=== PATIENT | male | born 1945 | race Caucasian/White ===

== ENCOUNTER 2016-11-06 07:04 | Emergency (ER) | payer MEDICARE, OTHER ==
--- NOTE | 2016-11-06 07:34 | ED Physician Documentation ---
PD HPI OPHTHO - Stated complaint Stated Complaint: BLURRED VISION - Chief complaint Chief Complaint: Neuro - History obtained from History obtained from: Patient - History of Present Illness Timing - onset: Today Timing - duration: Hours Timing - details: Gradual onset, Waxing and waning Location: Both (he noted movement of his vision when he awoke and was looking up and to the side, it seemed things were moving back and forth as he looked straight, and was happening with either or both eyes. No sense of vertigo per se. No visual change from his baseline poor acuity (20-200) and some peripheral rim visual loss chronically.) Quality / character: No: Itching, Burning Associated symptoms: Other (shifting back and forth of his vision.). No: Redness, Double vision, Decreased vision, Loss of vision, Headache Contributing factors: Other (does have history of Meniere's in the past with vertigo at times.). No: Recent URI Review of Systems Constitutional: denies: Fever, Chills Nose: denies: Rhinorrhea / runny nose, Congestion Throat: denies: Sore throat Respiratory: denies: Cough GI: denies: Nausea, Vomiting, Diarrhea Skin: denies: Rash, Lesions Neurologic: denies: Focal weakness, Numbness PD PAST MEDICAL HISTORY - Past Medical History Past Medical History: Yes Cardiovascular: Hypertension Respiratory: Pneumonia Endocrine/Autoimmune: Type 2 diabetes Musculoskeletal: Fibromyalgia - Past Surgical History Past Surgical History: Yes General: Cholecystectomy Derm: Skin grafts - Present Medications Home Medications: Ambulatory Orders Medication Instructions Recorded Confirmed Aspirin [Children's Aspirin] 81 mg PO DAILY 01/26/13 11/07/16 Atorvastatin Calcium [Lipitor] 10 mg PO HS 01/26/13 11/07/16 Hydroxychloroquine [Plaquenil] 200 mg PO BID 01/26/13 11/07/16 Lisinopril [Prinivil] 5 mg PO DAILY 01/26/13 11/07/16 [place]-3 Fatty Acids/Fish Oil [Fish 1 tab PO DAILY 01/26/13 11/06/16 Oil 1,000 mg Capsule] Omeprazole 20 mg PO BID 01/26/13 11/06/16 Saxagliptin HCl [Onglyza] 5 mg PO DAILY 01/26/13 11/06/16 Metoprolol Tartrate 50 mg PO DAILY 02/04/14 11/06/16 - Allergies Allergies/Adverse Reactions: Allergies Allergy/AdvReac Type Severity Reaction Status Date / Time lidocaine Allergy pass out Verified 11/07/16 01:50 - Social History Does the pt smoke?: No Smoking Status: Former smoker Does the pt drink ETOH?: No Does the pt have substance abuse?: No - Immunizations Immunizations are current?: Yes - POLST Patient has POLST: No POLST Status: Full Code PD ED PE NORMAL - Vitals Vital signs reviewed: Yes - General General: Alert and oriented X 3, Well developed/nourished - HEENT HEENT: PERRL, EOMI (but with some horizontal nystagmus to the left. No vertical nystagmus.) - Neck Neck: Supple, no meningeal sign, No adenopathy - Cardiac Cardiac: RRR, No murmur - Respiratory Respiratory: Clear bilaterally - Derm Derm: Normal color, Warm and dry, No rash - Extremities Extremities: Normal ROM s pain, No edema - Neuro Neuro: Alert and oriented X 3, logistics support 2-12 intact, No motor deficit, No sensory deficit, Normal speech, Other Results - Vitals Vitals: Vital Signs - 24 hr 11/06/16 08:08 Heart Rate 70 Respiratory 20 Rate Blood Pressure 134/76 H O2 Saturation 98 Oxygen O2 Source Room air PD MEDICAL DECISION MAKING - ED course Complexity details: considered differential (His description of the movement of things in his vision seems to correlate with the nystagmus he is having. No new meds or other likely cause, so presume a mild symptoms from his Menieres, though not having overt vertigo. ), d/w patient Departure - Departure Disposition: 01 Home, Self Care Clinical Impression: Visual disturbance, Nystagmus Condition: Stable Record reviewed to determine appropriate education?: Yes Follow-Up: Chung Villalta MD [Primary Care Provider] - Steven Iglesias MD [Provider Admit Priv/Credential] - Comments: I think the image movement you had this morning is from inner ear problem, like your Meniere's acting up. This will cause a back and forth eye movement ( nystagmus) that makes images move like you describe. If you have worse symptoms or develop vertigo, then can use Meclizine every 6 hours if needed. Otherwise stay normally hydrated and usual medications. Follow up PMD or Eye doctor as needed. Discharge Date/Time: 11/06/16 08:08
[2016-11-06 08:09] VITALS: BP 134/76
== END 2016-11-06 08:08 | disposition home or self-care (01) ==
LOC: ED 07:04
DX: H53.9 Unspecified visual disturbance (principal); H55.00 Unspecified nystagmus; I10 Essential (primary) hypertension; E11.9 Type 2 diabetes mellitus without complications; M79.7 Fibromyalgia; Z79.82 Long term (current) use of aspirin; Z87.891 Personal history of nicotine dependence
CPT/HCPCS: 99283

== ENCOUNTER 2016-11-07 01:45 | Emergency (ER) | payer MEDICARE, OTHER ==
[2016-11-07] MEDS ORDERED: MECLIZINE 12.5 MG TABLET PO STA (02:11)
[2016-11-07] MEDS ORDERED: MECLIZINE 12.5 MG TABLET PO ONE (02:12)
== END 2016-11-07 03:30 | disposition home or self-care (01) ==
DX: R42 Dizziness and giddiness (principal); R11.0 Nausea; I10 Essential (primary) hypertension; E11.9 Type 2 diabetes mellitus without complications; Z79.82 Long term (current) use of aspirin; Z87.891 Personal history of nicotine dependence
CPT/HCPCS: 99283; A9270

== ENCOUNTER 2017-05-02 18:40 | Emergency (ER) | payer MEDICARE, OTHER ==
[2017-05-02] MEDS ORDERED: CYCLOBENZAPRINE 10 MG TABLET PO STA (20:14)
[2017-05-02] MEDS ORDERED: KETOROLAC 60 MG/2 ML VIAL IM STA (20:14)
--- NOTE | 2017-05-02 20:15 | ED Physician Documentation ---
PD HPI BACK PAIN - Stated complaint Stated Complaint: SHOULDER BLADE PX - Chief complaint Chief Complaint: Ext Problem - History obtained from History obtained from: Patient, Family - History of Present Illness Timing - onset: Chronic Timing - duration: Weeks Timing - details: Intermittant, Waxing and waning Location: Upper, Right Quality: Pain, Sharp, Aching Associated symptoms: No: Fever, Weakness, Numbness, Incontinent of urine, Hematuria Worsened by: Movement, Palpation Contributing factors: Lifting, Twisting Similar symptoms before: No diagnosis Recently seen: Clinic - Additional information Additional information: Patient is a 71 year old male with a history of multiple surgeries who is presenting to the emergency department for right upper back pain. Patient states that it has been going on for weeks. Patient states that he had an episode earlier in the week and it was in his axilla and he stopped by his primary's office and they did an ekg and it was normal. Patient denies any type of trauma, chest pain, shortness of breath, nausea, vomiting, fevers or chills. He states it is worse when he moves it and better at rest. Review of Systems Constitutional: denies: Fever, Chills Eyes: denies: Decreased vision, Photophobia Ears: denies: Ear pain, Drainage/discharge Nose: denies: Rhinorrhea / runny nose, Congestion Throat: reports: Other (chronic dysphagia) Cardiac: denies: Chest pain / pressure, Palpitations, Calf pain Respiratory: denies: Dyspnea, Cough, Wheezing GI: denies: Nausea, Vomiting, Constipation, Diarrhea : reports: Reviewed and negative Skin: denies: Rash, Lesions Musculoskeletal: reports: Back pain. denies: Neck pain, Extremity pain, Joint pain Neurologic: denies: Generalized weakness, Focal weakness, Numbness, Difficulty speaking, Headache Immunocompromised: denies: Immunocompromised PD PAST MEDICAL HISTORY - Past Medical History Cardiovascular: Hypertension Respiratory: Pneumonia Neuro: None Endocrine/Autoimmune: Type 2 diabetes HEENT: None Psych: None Musculoskeletal: Fibromyalgia - Past Surgical History Past Surgical History: Yes General: Cholecystectomy Derm: Skin grafts - Present Medications Home Medications: Ambulatory Orders Medication Instructions Recorded Confirmed Aspirin [Children's Aspirin] 81 mg PO DAILY 01/26/13 05/02/17 Hydroxychloroquine [Plaquenil] 200 mg PO BID 01/26/13 05/02/17 Lisinopril [Prinivil] 5 mg PO DAILY 01/26/13 05/02/17 [place]-3 Fatty Acids/Fish Oil [Fish 1 tab PO DAILY 01/26/13 05/02/17 Oil 1,000 mg Capsule] Omeprazole 20 mg PO BID 01/26/13 05/02/17 Saxagliptin HCl [Onglyza] 5 mg PO DAILY 01/26/13 05/02/17 Metoprolol Tartrate 50 mg PO DAILY 02/04/14 05/02/17 Cholecalciferol (Vitamin D3) 1 tab PO DAILY 05/02/17 05/02/17 [Vitamin D3] Cyclobenzaprine [Flexeril] 10 mg PO TID PRN #10 tablet 05/02/17 - Allergies Allergies/Adverse Reactions: Allergies Allergy/AdvReac Type Severity Reaction Status Date / Time lidocaine Allergy pass out Verified 11/07/16 01:50 - Social History Does the pt smoke?: No Smoking Status: Former smoker Does the pt drink ETOH?: No Does the pt have substance abuse?: No - Immunizations Immunizations are current?: Yes - POLST Patient has POLST: No POLST Status: Full Code PD ED PE NORMAL - Vitals Vital signs reviewed: Yes - General General: Alert and oriented X 3, No acute distress, Well developed/nourished - HEENT HEENT: Atraumatic, PERRL, Moist mucous membranes, Pharynx benign, Dentition benign - Neck Neck: Supple, no meningeal sign, No JVD - Cardiac Cardiac: RRR, No murmur - Respiratory Respiratory: No respiratory distress, Clear bilaterally - Abdomen Abdomen: Soft, Non tender, Non distended - Derm Derm: Normal color, Warm and dry, No rash - Extremities Extremities: No deformity, No tenderness to palpate, Normal ROM s pain, No edema - Neuro Neuro: Alert and oriented X 3, No motor deficit, No sensory deficit, Normal speech - Psych Psych: Normal mood, Normal affect PD ED PE EXPANDED - Back Back: Normal ROM, Soft tissue tenderness (tenderness to palpation of right upper back musculature near the scapular boarder, full rom) Results - Vitals Vitals: Vital Signs - 24 hr 05/02/17 05/02/17 18:43 20:27 Temperature 36.7 C Heart Rate 80 69 Respiratory 18 18 Rate Blood Pressure 153/88 H 140/87 H O2 Saturation 97 96 Oxygen O2 Source Room air PD MEDICAL DECISION MAKING - ED course Complexity details: reviewed old records, reviewed results, re-evaluated patient , considered differential, d/w patient, d/w family ED course: Patient was seen and examined at bedside. patient was well appearing and in no acute distress. Patient had full rom and no trauma. imaging was not indicated at this time. Patient required no further work up and was stable for discharge with outpatient follow up. Departure - Departure Disposition: Home, Self Care Clinical Impression: Muscle strain of right upper back Condition: Good Instructions: ED Sprain Thoracic Spine Follow-Up: Chung Villalta MD [Primary Care Provider] - Tomorrow Prescriptions: Cyclobenzaprine [Flexeril] 10 mg PO TID PRN #10 tablet PRN Reason: Spasms Comments: Your symptoms today are likely musculoskeletal in nature. You should use ice/ heat as needed as well as motrin and tylenol. You can use flexeril as needed for spasm. You should follow up with your doctor tomorrow for referral for physical therapy. You may return to the emergency department at any time for new, worsening or uncontrollable symptoms. Discharge Date/Time: 05/02/17 20:28
[2017-05-02] MEDS ORDERED: CYCLOBENZAPRINE 10 MG TABLET PO ONE (20:22)
[2017-05-02] MEDS ORDERED: KETOROLAC 60 MG/2 ML VIAL ONE (20:22)
[2017-05-02 20:29] VITALS: BP 140/87
== END 2017-05-02 20:28 | disposition home or self-care (01) ==
LOC: ED 18:40
DX: S46.811A Strain of other muscles, fascia and tendons at shoulder and upper arm level, right arm, initial encounter (principal); I10 Essential (primary) hypertension; Z87.891 Personal history of nicotine dependence
CPT/HCPCS: 96372; 99283; A9270

== ENCOUNTER 2017-05-05 07:54 | Outpatient (CLI) | payer MEDICARE, OTHER ==
--- NOTE | 2017-05-05 16:11 | XRAY Report ---
CERVICAL SPINE: 05/05/2017 COMPARISON: None. INDICATION: Neck and back pain. TECHNIQUE: Five views of the cervical spine. FINDINGS: There is mild narrowing of the C4-C5 disk space. There is moderate narrowing of the C6-C7 disk space. There are mild to moderate anterior osteophytes. No prevertebral soft tissue swelling. The lateral masses are symmetric. There is narrowing of the bony neural foramina as follows: RIGHT C3-C4: Moderate to severe. C4-C5: Moderate. C5-C6: Mild. LEFT C2-C3: Mild. C3-C4: Moderate. C4-C5: Moderate. C5-C6: Mild. IMPRESSION: MODERATE CERVICAL SPONDYLOSIS DETAILED ABOVE. JOB #: [id number] EXT JOB #:
== END 2017-05-05 07:55 | disposition home or self-care (01) ==
LOC: DI 07:54
PROVIDERS: ATTEND Family Medicine
DX: M47.892 Other spondylosis, cervical region (principal)
CPT/HCPCS: 72050; 72100

== ENCOUNTER 2017-07-19 23:08 | Emergency (ER) | payer MEDICARE, OTHER ==
--- NOTE | 2017-07-19 23:23 | ED Physician Documentation ---
History of Present Illness - Stated complaint Stated Complaint: IRREGULAR HEART RATE - Chief complaint Chief Complaint: Cardiac - History obtained from History obtained from: Patient - History of Present Illness Timing: Prior to arrival, Enter time (23:00), Today Pain level max: 0 Pain level now: 0 Improved by: no ameliorating factors Worsened by: no exacerbating factors - Additonal information Additional information: awoke at approximately 11 PM tonight to use bathroom and felt "skipped beat" palpitations. He has had these before and was told they were benign (based on holter monitor performed in the past few years), but tonight felt more frequent and persistent than what he is used to. Review of Systems Cardiac: reports: Palpitations. denies: Chest pain / pressure Respiratory: reports: Reviewed and negative GI: reports: Reviewed and negative PD PAST MEDICAL HISTORY - Past Medical History Cardiovascular: Hypertension Respiratory: Pneumonia Neuro: None Endocrine/Autoimmune: Type 2 diabetes HEENT: None Psych: None Musculoskeletal: Fibromyalgia - Past Surgical History Past Surgical History: Yes General: Cholecystectomy Derm: Skin grafts - Present Medications Home Medications: Ambulatory Orders Medication Instructions Recorded Confirmed Aspirin [Children's Aspirin] 81 mg PO DAILY 01/26/13 07/19/17 Hydroxychloroquine [Plaquenil] 200 mg PO BID 01/26/13 07/19/17 Lisinopril [Prinivil] 5 mg PO DAILY 01/26/13 07/19/17 [place]-3 Fatty Acids/Fish Oil [Fish 1 tab PO DAILY 01/26/13 07/19/17 Oil 1,000 mg Capsule] Omeprazole 20 mg PO BID 01/26/13 07/19/17 Saxagliptin HCl [Onglyza] 5 mg PO DAILY 01/26/13 07/19/17 Metoprolol Tartrate 50 mg PO DAILY 02/04/14 07/19/17 Cholecalciferol (Vitamin D3) 1 tab PO DAILY 05/02/17 07/19/17 [Vitamin D3] Cyclobenzaprine [Flexeril] 10 mg PO TID PRN #10 tablet 05/02/17 07/19/17 - Allergies Allergies/Adverse Reactions: Allergies Allergy/AdvReac Type Severity Reaction Status Date / Time lidocaine Allergy pass out Verified 11/07/16 01:50 - Social History Does the pt smoke?: No Smoking Status: Never smoker Does the pt drink ETOH?: No Does the pt have substance abuse?: No - Immunizations Immunizations are current?: Yes - POLST Patient has POLST: No POLST Status: Full Code PD ED PE NORMAL - Vitals Vital signs reviewed: Yes - General General: Alert and oriented X 3, No acute distress, Well developed/nourished - Cardiac Cardiac: RRR (occasional skipped beats), No murmur, No gallop, No rub - Respiratory Respiratory: No respiratory distress, Clear bilaterally - Abdomen Abdomen: Soft, Non tender Results - Vitals Vitals: Vital Signs - 24 hr 07/19/17 07/20/17 23:17 00:44 Temperature 36.5 C Heart Rate 72 74 Respiratory 18 19 Rate Blood Pressure 196/98 H 150/86 H O2 Saturation 100 98 Oxygen O2 Source Room air - EKG (time done) No standard instances Rate: Rate (enter#) (67) Rhythm: NSR [place]: Normal Intervals: Normal IN, Wide QRS (nonspecific IVCD) QRS: Normal Ischemia: Normal ST segments - Labs Labs: Laboratory Tests 07/19/17 07/19/17 07/19/17 23:55 23:55 23:55 WBC 7.0 RBC 4.47 L Hgb 14.6 Hct 41.1 L MCV 91.9 MCH 32.6 H MCHC 35.5 RDW 13.5 Plt Count 196 MPV 7.1 L Neut # 3.3 Lymph # 2.7 [place] # 0.7 Eos # 0.2 Baso # 0.1 Absolute Nucleated RBC 0.00 Nucleated RBC % 0.0 Sodium 138 Potassium 4.1 Chloride 104 Carbon Dioxide 28 Anion Gap 6.0 BUN 15 Creatinine 1.1 Estimated GFR (MDRD) 66 L Glucose 146 H Calcium 8.9 Total Bilirubin 0.6 AST 25 ALT 26 Alkaline Phosphatase 65 Troponin I < 0.04 Total Protein 6.8 Albumin 4.1 Globulin 2.7 Albumin/Globulin Ratio 1.5 Lipase 31 PD MEDICAL DECISION MAKING - ED course Complexity details: reviewed results, re-evaluated patient, considered differential, d/w patient ED course: occasional PVCs on monitor which correlated with patient's perception of a "skipped beat" palpitation. No other ectopy noted during ED stay and patient had no other c/o. Departure - Departure Disposition: 01 Home, Self Care Clinical Impression: Premature ventricular beats Condition: Good Instructions: ED Palpitations Follow-Up: CARLEEN HUBBARD [Primary Care Provider] - Discharge Date/Time: 07/20/17 00:56
[2017-07-20 00:12] LABS: BASOPHILS # (AUTO) 0.1 10^3/uL (0.0-0.1); BASOPHILS % (AUTO) 1.1 %; EOSINOPHILS # (AUTO) 0.2 10^3/uL (0.0-0.7); EOSINOPHILS % (AUTO) 3.3 %; HGB - HEMOGLOBIN 14.6 g/dL (14.0-18.0); LYMPHOCYTES # (AUTO) 2.7 10^3/uL (1.5-3.5); LYMPHOCYTES % (AUTO) 38.2 %; MEAN CORPUSCULAR HEMOGLOBIN 32.6 pg (27.0-31.0); MEAN CORPUSCULAR HGB CONC 35.5 g/dL (32.0-36.0); MEAN CORPUSCULAR VOLUME 91.9 fL (80.0-94.0); MEAN PLATELET VOLUME 7.1 fL (7.4-11.4); MONOCYTES # (AUTO) 0.7 10^3/uL (0.0-1.0); MONOCYTES % (AUTO) 9.8 %; NEUTROPHILS # (AUTO) 3.3 10^3/uL (1.5-6.6); NEUTROPHILS % (AUTO) 47.6 %; PLT - PLATELET COUNT 196 10^3/uL (130-450); RED BLOOD COUNT 4.47 10^6/uL (4.70-6.10); RED CELL DISTRIBUTION WIDTH 13.5 % (12.0-15.0)
[2017-07-20 00:16] LABS: ALBUMIN 4.1 g/dL (3.2-5.5); ALBUMIN/GLOBULIN RATIO 1.5 (1.0-2.2); BILIRUBIN,TOTAL 0.6 mg/dL (0.2-1.0); CALCIUM 8.9 mg/dL (8.5-10.3); CREATININE 1.1 mg/dL (0.6-1.2); TOTAL PROTEIN 6.8 g/dL (6.7-8.2)
[2017-07-20 00:45] VITALS: BP 150/86
== END 2017-07-20 00:56 | disposition home or self-care (01) ==
LOC: ED 23:08
DX: I49.3 Ventricular premature depolarization (principal); I10 Essential (primary) hypertension; E11.9 Type 2 diabetes mellitus without complications; Z79.82 Long term (current) use of aspirin
CPT/HCPCS: 36415; 80053; 83690; 84484; 85025; 93005; 99283

== ENCOUNTER 2018-10-30 08:01 | Outpatient (CLI) | payer MEDICARE, OTHER ==
--- NOTE | 2018-10-30 11:22 | XRAY Report ---
Reason: LOCALIZED SWELLING, MASS AND LUMP, RIGHT UPPER FERRARI Procedure Date: 10/30/2018 Accession Number: [id number] / [id number] Procedure: XR - Elbow 3 View RT CPT Code: FULL RESULT: EXAM: RIGHT ELBOW RADIOGRAPHY EXAM DATE: 10/30/2018 08:09 AM. CLINICAL HISTORY: Localized swelling, mass and lump, right upper limb. COMPARISON: None. TECHNIQUE: 3 views. FINDINGS: Bones: There is a questionable irregularity about the radial head best seen on the lateral view without definite associated joint effusion. Joints: Normal. No effusion. No subluxation. Soft Tissues: Normal. No soft tissue swelling. IMPRESSION: Questionable irregularity about the radial head, correlate to focal point tenderness. RADIA
== END 2018-10-30 08:02 | disposition home or self-care (01) ==
LOC: DI 08:01
PROVIDERS: ATTEND Family Medicine
DX: R22.31 Localized swelling, mass and lump, right upper limb (principal)

== ENCOUNTER 2019-02-07 00:05 | Emergency (ER) | payer MEDICARE, OTHER ==
[2019-02-07] MEDS ORDERED: SODIUM CHLORIDE 0.9% 1,000 ML IV ONE (01:19)
--- NOTE | 2019-02-07 01:22 | ED Physician Documentation ---
History of Present Illness - Stated complaint Stated Complaint: SKIPPING HEART - Chief complaint Chief Complaint: Cardiac - History obtained from History obtained from: Patient, Family - History of Present Illness Timing: Today - Additonal information Additional information: 73-year-old male with a history of Sjogren's syndrome has noticed skipping beats in his heart tonight. He has had a lot of these when he was on his way into the hospital. They seem to have improved now. He is not otherwise having any specific symptoms. He did play 18 holes of golf this morning and shot well. He played 18 holes of golf 2 days ago when shot well. He states that he has been unable to play golf for about a month after pulling his hamstring. He feels this is improved. Review of Systems Constitutional: denies: Fever, Chills, Myalgias, Fatigue, Sweats Eyes: reports: Decreased vision Ears: denies: Ear pain Nose: denies: Rhinorrhea / runny nose, Congestion Throat: denies: Sore throat Cardiac: reports: Palpitations. denies: Chest pain / pressure, Pedal edema, Calf pain Respiratory: denies: Dyspnea, Cough, Wheezing GI: denies: Abdominal Pain, Nausea, Vomiting : denies: Dysuria, Frequency Skin: denies: Rash Musculoskeletal: reports: Extremity pain. denies: Neck pain, Back pain Neurologic: denies: Generalized weakness, Focal weakness, Numbness PD PAST MEDICAL HISTORY - Past Medical History Past Medical History: Yes Cardiovascular: Hypertension Respiratory: Pneumonia Endocrine/Autoimmune: Type 2 diabetes HEENT: None Psych: None Musculoskeletal: Fibromyalgia - Past Surgical History Past Surgical History: Yes General: Cholecystectomy Derm: Skin grafts - Present Medications Home Medications: Ambulatory Orders Medication Instructions Recorded Confirmed Aspirin [Children's Aspirin] 81 mg PO DAILY 01/26/13 07/19/17 Hydroxychloroquine [Plaquenil] 200 mg PO BID 01/26/13 07/19/17 Lisinopril [Prinivil] 5 mg PO DAILY 01/26/13 07/19/17 [place]-3 Fatty Acids/Fish Oil [Fish 1 tab PO DAILY 01/26/13 07/19/17 Oil 1,000 mg Capsule] RX: Omeprazole 20 mg PO BID 01/26/13 07/19/17 Saxagliptin HCl [Onglyza] 5 mg PO DAILY 01/26/13 07/19/17 RX: Metoprolol Tartrate 50 mg PO DAILY 02/04/14 07/19/17 Cholecalciferol (Vitamin D3) 1 tab PO DAILY 05/02/17 07/19/17 [Vitamin D3] Cyclobenzaprine [Flexeril] 10 mg PO TID PRN #10 tablet 05/02/17 07/19/17 - Allergies Allergies/Adverse Reactions: Allergies Allergy/AdvReac Type Severity Reaction Status Date / Time lidocaine Allergy pass out Verified 11/07/16 01:50 - Social History Does the pt smoke?: No Smoking Status: Never smoker Does the pt drink ETOH?: No Does the pt have substance abuse?: No - Immunizations Immunizations are current?: Yes - POLST Patient has POLST: No POLST Status: Full Code PD ED PE NORMAL - Vitals Vital signs reviewed: Yes (hypertensive ) - General General: Alert and oriented X 3, No acute distress, Well developed/nourished - HEENT HEENT: Atraumatic, PERRL, EOMI, Other (dry mucous membranes ) - Neck Neck: Supple, no meningeal sign, No bony TTP - Cardiac Cardiac: RRR, No murmur - Respiratory Respiratory: No respiratory distress, Clear bilaterally - Abdomen Abdomen: Normal bowel sounds, Soft, Non tender, Non distended, No organomegaly - Back Back: No CVA TTP, No spinal TTP - Derm Derm: Normal color, Warm and dry, No rash - Extremities Extremities: No deformity, No tenderness to palpate, Normal ROM s pain, No edema, No calf tenderness / cord - Neuro Neuro: Alert and oriented X 3, assistant director 2-12 intact, No motor deficit, No sensory deficit, Normal speech Eye Opening: Spontaneous Motor: Obeys Commands Verbal: Oriented GCS Score: 15 - Psych Psych: Normal mood, Normal affect Results - Vitals Vitals: Vital Signs - 24 hr 02/07/19 02/07/19 02/07/19 00:08 00:14 00:51 Temperature 36.2 C L Heart Rate 62 61 59 L Respiratory 16 14 16 Rate Blood Pressure 174/80 H 174/80 H 133/79 H O2 Saturation 100 100 97 02/07/19 02:03 Temperature Heart Rate 62 Respiratory 16 Rate Blood Pressure 137/60 H O2 Saturation 97 Oxygen O2 Source Room air - EKG (time done) 0007 Rate: Rate (enter#) (63) Rhythm: NSR Intervals: Wide QRS Ischemia: Normal ST segments Compare to prior EKG: Unchanged from prior EKG (SPT 07-19-17 no changes ) Computer interpretation: Agree with computer - Labs Labs: Laboratory Tests 02/07/19 02/07/19 02/07/19 00:20 00:20 00:20 WBC 7.4 RBC 4.83 Hgb 15.5 Hct 43.7 MCV 90.5 MCH 32.1 H MCHC 35.5 RDW 12.7 Plt Count 169 MPV 8.8 Neut # (Auto) 3.3 Lymph # (Auto) 3.0 [place] # (Auto) 0.9 Eos # (Auto) 0.2 Baso # (Auto) 0.1 Absolute Nucleated RBC 0.00 Nucleated RBC % 0.0 Sodium 139 Potassium 4.3 Chloride 105 Carbon Dioxide 25 Anion Gap 9.0 BUN 19 Creatinine 1.3 H Estimated GFR (MDRD) 54 L Glucose 163 H Calcium 9.1 Total Bilirubin 0.8 AST 32 ALT 26 Alkaline Phosphatase 72 Troponin I < 0.04 Troponin I High Sens 10.4 Total Protein 7.3 Albumin 4.4 Globulin 2.9 Albumin/Globulin Ratio 1.5 Lipase 37 Urine Color Urine Clarity Urine pH Ur Specific [place] Urine Protein Urine Glucose (UA) Urine Ketones Urine Occult Blood Urine Nitrite Urine Bilirubin Urine Urobilinogen Ur Leukocyte Esterase Ur Microscopic Review Urine Culture Comments 02/07/19 01:22 WBC RBC Hgb Hct MCV MCH MCHC RDW Plt Count MPV Neut # (Auto) Lymph # (Auto) [place] # (Auto) Eos # (Auto) Baso # (Auto) Absolute Nucleated RBC Nucleated RBC % Sodium Potassium Chloride Carbon Dioxide Anion Gap BUN Creatinine Estimated GFR (MDRD) Glucose Calcium Total Bilirubin AST ALT Alkaline Phosphatase Troponin I Troponin I High Sens Total Protein Albumin Globulin Albumin/Globulin Ratio Lipase Urine Color YELLOW Urine Clarity CLEAR Urine pH 6.0 Ur Specific [place] 1.010 Urine Protein NEGATIVE Urine Glucose (UA) NEGATIVE Urine Ketones NEGATIVE Urine Occult Blood TRACE-INTA Urine Nitrite NEGATIVE Urine Bilirubin NEGATIVE Urine Urobilinogen 0.2 (NORMAL) Ur Leukocyte Esterase NEGATIVE Ur Microscopic Review NOT INDICATED Urine Culture Comments NOT INDICATED Procedures - IVC sono (time) 0115 Bedside IVC sono: IVC measures (cm) (0.74), Dehydration (est 2+ liters deficit) PD MEDICAL DECISION MAKING - ED course Complexity details: reviewed old records, reviewed results, re-evaluated patient, considered differential, d/w patient, d/w family ED course: 73-year-old male with history of Sjogren's syndrome has developed frequent PVCs and he has sensation of this. He is found to be dehydrated on interrogation of the inferior vena cava and he is administered normal saline. There is continued improvement. Departure - Departure Disposition: 01 Home, Self Care Clinical Impression: Premature ventricular beats, Dehydration Condition: Stable Instructions: ED Dehydration, ED Palpitations Follow-Up: Chung Villalta MD [Primary Care Provider] - Discharge Date/Time: 02/07/19 02:25
[2019-02-07 01:27] LABS: BASOPHILS # (AUTO) 0.1 10^3/uL (0.0-0.1); BASOPHILS % (AUTO) 0.8 %; EOSINOPHILS # (AUTO) 0.2 10^3/uL (0.0-0.7); HGB - HEMOGLOBIN 15.5 g/dL (14.0-18.0); LYMPHOCYTES % (AUTO) 40.2 %; MEAN CORPUSCULAR HEMOGLOBIN 32.1 pg (27.0-31.0); MEAN CORPUSCULAR HGB CONC 35.5 g/dL (32.0-36.0); MEAN CORPUSCULAR VOLUME 90.5 fL (80.0-94.0); MEAN PLATELET VOLUME 8.8 fL (7.4-11.4); MONOCYTES # (AUTO) 0.9 10^3/uL (0.0-1.0); NEUTROPHILS # (AUTO) 3.3 10^3/uL (1.5-6.6); NEUTROPHILS % (AUTO) 43.9 %; PLT - PLATELET COUNT 169 10^3/uL (130-450); RED BLOOD COUNT 4.83 10^6/uL (4.70-6.10); RED CELL DISTRIBUTION WIDTH 12.7 % (12.0-15.0); WHITE BLOOD COUNT 7.4 x10^3/uL (4.8-10.8)
[2019-02-07 01:29] LABS: BILIRUBIN,URINE NEGATIVE (NEGATIVE); GLUCOSE, URINE (UA) NEGATIVE (NEGATIVE); KETONES,URINE (UA) NEGATIVE (NEGATIVE); LEUKOCYTE ESTERASE, URINE NEGATIVE (NEGATIVE); NITRITE,URINE NEGATIVE (NEGATIVE); OCCULT BLOOD,URINE TRACE-INTA (NEGATIVE); PROTEIN,URINE NEGATIVE (NEGATIVE); UROBILINOGEN,URINE 0.2 (NORMAL) E.U./dL (NORMAL)
[2019-02-07 01:32] LABS: CLARITY,URINE CLEAR (CLEAR)
[2019-02-07 01:37] LABS: ALBUMIN 4.4 g/dL (3.2-5.5); ALBUMIN/GLOBULIN RATIO 1.5 (1.0-2.2); BILIRUBIN,TOTAL 0.8 mg/dL (0.2-1.0); CALCIUM 9.1 mg/dL (8.5-10.3); CREATININE 1.3 mg/dL (0.6-1.2); TOTAL PROTEIN 7.3 g/dL (6.7-8.2)
[2019-02-07 01:43] LABS: TROPONIN I < 0.04 ng/mL (<0.49)
[2019-02-07 02:03] VITALS: BP 137/60
== END 2019-02-07 02:25 | disposition home or self-care (01) ==
LOC: ED 00:05
DX: I49.3 Ventricular premature depolarization (principal); E86.0 Dehydration; M35.00 Sjogren syndrome, unspecified; I10 Essential (primary) hypertension; E11.9 Type 2 diabetes mellitus without complications; Z79.82 Long term (current) use of aspirin
CPT/HCPCS: 36415; 80053; 81001; 81003; 83690; 84484; 85025; 87086; 93005; 96360; 99283

== ENCOUNTER 2019-03-10 00:07 | Emergency (ER) | payer MEDICARE, OTHER ==
[2019-03-10 00:29] LABS: BASOPHILS # (AUTO) 0.1 10^3/uL (0.0-0.1); BASOPHILS % (AUTO) 0.8 %; EOSINOPHILS # (AUTO) 0.2 10^3/uL (0.0-0.7); HGB - HEMOGLOBIN 14.6 g/dL (14.0-18.0); LYMPHOCYTES # (AUTO) 2.9 10^3/uL (1.5-3.5); LYMPHOCYTES % (AUTO) 39.8 %; MEAN CORPUSCULAR HEMOGLOBIN 31.9 pg (27.0-31.0); MEAN CORPUSCULAR HGB CONC 35.4 g/dL (32.0-36.0); MEAN PLATELET VOLUME 8.7 fL (7.4-11.4); MONOCYTES # (AUTO) 0.8 10^3/uL (0.0-1.0); MONOCYTES % (AUTO) 11.2 %; NEUTROPHILS # (AUTO) 3.2 10^3/uL (1.5-6.6); NEUTROPHILS % (AUTO) 44.8 %; PLT - PLATELET COUNT 156 10^3/uL (130-450); RED BLOOD COUNT 4.58 10^6/uL (4.70-6.10); RED CELL DISTRIBUTION WIDTH 12.6 % (12.0-15.0); WHITE BLOOD COUNT 7.2 x10^3/uL (4.8-10.8)
[2019-03-10 00:45] LABS: ALBUMIN 3.9 g/dL (3.2-5.5); ALBUMIN/GLOBULIN RATIO 1.4 (1.0-2.2); BILIRUBIN,TOTAL 0.7 mg/dL (0.2-1.0); CALCIUM 8.6 mg/dL (8.5-10.3); CREATININE 1.1 mg/dL (0.6-1.2); TOTAL PROTEIN 6.6 g/dL (6.7-8.2)
[2019-03-10] MEDS ORDERED: SODIUM CHLORIDE 0.9% 1,000 ML IV ONE (00:54)
--- NOTE | 2019-03-10 00:56 | ED Physician Documentation ---
History of Present Illness - Stated complaint Stated Complaint: SKIPPING HEART - Chief complaint Chief Complaint: Cardiac - History obtained from History obtained from: Patient, Family - History of Present Illness Timing: Today - Additonal information Additional information: 73-year-old male with a history of Sjogren's syndrome has developed skipping heartbeat similar to what he has had at the beginning of the month when he was evaluated here in the emerge department found to be dehydrated and was hydrated here in the emergency department with improvement in his symptoms. Today he was out working in the garden he felt that he was adequately hydrating with water and despite this he comes in this evening with symptoms of frequent missed beats that are disturbing to him. He states that recently when he is been playing golf he has been drinking Gatorade 0 he has not had symptoms. Review of Systems Constitutional: reports: Fatigue. denies: Fever, Chills, Sweats Eyes: denies: Decreased vision Ears: denies: Ear pain Nose: denies: Congestion Throat: denies: Sore throat Cardiac: denies: Chest pain / pressure, Palpitations Respiratory: denies: Dyspnea, Cough GI: denies: Abdominal Pain, Nausea, Vomiting : denies: Dysuria PD PAST MEDICAL HISTORY - Past Medical History Past Medical History: Yes Cardiovascular: Hypertension Respiratory: Pneumonia Endocrine/Autoimmune: Type 2 diabetes HEENT: None Psych: None Musculoskeletal: Fibromyalgia - Past Surgical History Past Surgical History: Yes General: Cholecystectomy Derm: Skin grafts - Present Medications Home Medications: Ambulatory Orders Medication Instructions Recorded Confirmed Aspirin [Children's Aspirin] 81 mg PO DAILY 01/26/13 07/19/17 Hydroxychloroquine [Plaquenil] 200 mg PO BID 01/26/13 07/19/17 Lisinopril [Prinivil] 5 mg PO DAILY 01/26/13 07/19/17 [place]-3 Fatty Acids/Fish Oil [Fish 1 tab PO DAILY 01/26/13 07/19/17 Oil 1,000 mg Capsule] Omeprazole 20 mg PO BID 01/26/13 07/19/17 Saxagliptin HCl [Onglyza] 5 mg PO DAILY 01/26/13 07/19/17 Metoprolol Tartrate 50 mg PO DAILY 02/04/14 07/19/17 Cholecalciferol (Vitamin D3) 1 tab PO DAILY 05/02/17 07/19/17 [Vitamin D3] Cyclobenzaprine [Flexeril] 10 mg PO TID PRN #10 tablet 05/02/17 07/19/17 - Allergies Allergies/Adverse Reactions: Allergies Allergy/AdvReac Type Severity Reaction Status Date / Time lidocaine Allergy pass out Verified 11/07/16 01:50 - Social History Does the pt smoke?: No Smoking Status: Never smoker Does the pt drink ETOH?: No Does the pt have substance abuse?: No - Immunizations Immunizations are current?: Yes - POLST Patient has POLST: No POLST Status: Full Code PD ED PE NORMAL - Vitals Vital signs reviewed: Yes (hypertensive ) - General General: Alert and oriented X 3, No acute distress, Well developed/nourished - HEENT HEENT: Atraumatic, PERRL, EOMI - Neck Neck: Supple, no meningeal sign - Cardiac Cardiac: RRR, No murmur - Respiratory Respiratory: No respiratory distress, Clear bilaterally - Abdomen Abdomen: Normal bowel sounds, Soft, Non tender, Non distended, No organomegaly - Back Back: No CVA TTP, No spinal TTP - Derm Derm: Normal color, Warm and dry, No rash - Extremities Extremities: No deformity, No edema, No calf tenderness / cord - Neuro Neuro: Alert and oriented X 3, orthopedic nurse practitioner 2-12 intact, No motor deficit, No sensory deficit, Normal speech Eye Opening: Spontaneous Motor: Obeys Commands Verbal: Oriented GCS Score: 15 - Psych Psych: Normal mood, Normal affect Results - Vitals Vitals: Vital Signs - 24 hr 03/10/19 03/10/19 03/10/19 00:10 00:43 01:45 Temperature 36.8 C Heart Rate 59 L 61 62 Respiratory 14 16 16 Rate Blood Pressure 180/75 H 158/61 H 161/67 H O2 Saturation 100 99 99 03/10/19 02:30 Temperature 36.5 C Heart Rate 61 Respiratory 15 Rate Blood Pressure 149/79 H O2 Saturation 98 Oxygen O2 Source Room air - EKG (time done) 0016 Rate: Rate (enter#) (61) Rhythm: Other (PVC's) Intervals: Wide QRS Compare to prior EKG: Unchanged from prior EKG (SPT 02-07-19 no sig changes) Computer interpretation: Agree with computer - Labs Labs: Laboratory Tests 03/10/19 03/10/19 03/10/19 00:24 00:24 00:24 WBC 7.2 RBC 4.58 L Hgb 14.6 Hct 41.2 L MCV 90.0 MCH 31.9 H MCHC 35.4 RDW 12.6 Plt Count 156 MPV 8.7 Neut # (Auto) 3.2 Lymph # (Auto) 2.9 [place] # (Auto) 0.8 Eos # (Auto) 0.2 Baso # (Auto) 0.1 Absolute Nucleated RBC 0.00 Nucleated RBC % 0.0 Sodium 139 Potassium 4.0 Chloride 106 Carbon Dioxide 26 Anion Gap 7.0 BUN 12 Creatinine 1.1 Estimated GFR (MDRD) 66 L Glucose 155 H Calcium 8.6 Total Bilirubin 0.7 AST 26 ALT 26 Alkaline Phosphatase 75 Troponin I High Sens 8.3 Total Protein 6.6 L Albumin 3.9 Globulin 2.7 Albumin/Globulin Ratio 1.4 Lipase 38 Procedures - IVC sono (time) 0051 Bedside IVC sono: IVC measures (cm) (0.93), IVC collapsed c insp (cm) (complete), Dehydration (est 1-2 liter deficit) 0214 Bedside IVC sono: IVC measures (cm) (1.34), Dehydration (est <500ml deficit) PD MEDICAL DECISION MAKING - ED course Complexity details: considered differential, d/w patient, d/w family ED course: 73-year-old male who presents to the emergency department again today with a sensation of a skipped beat. He does have ventricular premature depolarizations and these are frequent. On his prior visit he was found to be dehydrated on interrogation the inferior vena cava. He indicates that he has been drinking water and relates he has had 7 20 ounce glasses of water today while he was out in the garden. Despite this level of free water intake he is again dehydrated on interrogation of the IVC and he is symptomatic. He is administered IV saline. Departure - Departure Disposition: 01 Home, Self Care Clinical Impression: Premature ventricular beats, Dehydration Condition: Stable Instructions: ED Dehydration, ED Palpitations Follow-Up: Chung Villalta MD [Primary Care Provider] - Discharge Date/Time: 03/10/19 02:37
[2019-03-10 02:36] VITALS: BP 149/79
== END 2019-03-10 02:37 | disposition home or self-care (01) ==
LOC: ED 00:07
DX: I49.3 Ventricular premature depolarization (principal); E86.0 Dehydration; I10 Essential (primary) hypertension; E11.9 Type 2 diabetes mellitus without complications
CPT/HCPCS: 36415; 80053; 83690; 84484; 85025; 93005; 96360; 99284

== ENCOUNTER 2019-07-13 22:40 | Emergency (ER) | payer MEDICARE, OTHER ==
[2019-07-13] MEDS ORDERED: ALBUTEROL NEB 2.5 MG/3 ML INH STA (22:58)
[2019-07-13 23:19] LABS: BASOPHILS % (AUTO) 0.4 %; EOSINOPHILS # (AUTO) 0.1 10^3/uL (0.0-0.7); EOSINOPHILS % (AUTO) 0.9 %; HGB - HEMOGLOBIN 15.2 g/dL (14.0-18.0); LYMPHOCYTES # (AUTO) 1.4 10^3/uL (1.5-3.5); LYMPHOCYTES % (AUTO) 13.8 %; MEAN CORPUSCULAR HEMOGLOBIN 31.3 pg (27.0-31.0); MEAN CORPUSCULAR HGB CONC 35.7 g/dL (32.0-36.0); MEAN CORPUSCULAR VOLUME 87.8 fL (80.0-94.0); MEAN PLATELET VOLUME 8.6 fL (7.4-11.4); MONOCYTES # (AUTO) 0.9 10^3/uL (0.0-1.0); MONOCYTES % (AUTO) 9.3 %; NEUTROPHILS # (AUTO) 7.4 10^3/uL (1.5-6.6); NEUTROPHILS % (AUTO) 75.1 %; PLT - PLATELET COUNT 182 10^3/uL (130-450); RED BLOOD COUNT 4.85 10^6/uL (4.70-6.10); RED CELL DISTRIBUTION WIDTH 12.8 % (12.0-15.0); WHITE BLOOD COUNT 9.8 x10^3/uL (4.8-10.8)
[2019-07-13 23:33] LABS: ALBUMIN 4.3 g/dL (3.2-5.5); ALBUMIN/GLOBULIN RATIO 1.4 (1.0-2.2); BILIRUBIN,TOTAL 1.9 mg/dL (0.2-1.0); CALCIUM 8.8 mg/dL (8.5-10.3); CREATININE 1.1 mg/dL (0.6-1.2); TOTAL PROTEIN 7.4 g/dL (6.7-8.2)
--- NOTE | 2019-07-13 23:57 | XRAY Report ---
Reason: cough Procedure Date: 07/13/2019 Accession Number: [id number] / [id number] Procedure: XR - Chest 2 View X-Ray CPT Code: 45446 Final Report FULL RESULT: EXAM: CHEST RADIOGRAPHY EXAM DATE: 07/13/2019 11:34 PM. CLINICAL HISTORY: Cough. COMPARISON: CHEST 2 VIEW PA/LAT 06/14/2015 9:57 AM. TECHNIQUE: 2 views. FINDINGS: Lungs/Pleura: No focal opacities evident. No pleural effusion. No pneumothorax. Normal volumes. Mediastinum: Heart and mediastinal contours are unremarkable. Other: None. IMPRESSION: Stable negative 2-view chest radiography. RADIA
--- NOTE | 2019-07-14 00:13 | ED Physician Documentation ---
History of Present Illness - Stated complaint Stated Complaint: SOA/COUGH - Chief complaint Chief Complaint: Resp - History obtained from History obtained from: Patient - History of Present Illness Timing: Today (this morning, approximately 10 AM) Pain level max: 0 Pain level now: 0 Improved by: rest Worsened by: exertion, coughing - Additonal information Additional information: c/o dypsnea and cough since waking this morning, gradually worsening during the day. cough is mostly dry/nonproductive, but he says occasionally he coughs up white/clear mucous. Review of Systems Constitutional: denies: Fever, Chills, Sweats Throat: denies: Sore throat Cardiac: reports: Reviewed and negative Respiratory: reports: Dyspnea, Cough. denies: Hemoptysis, Wheezing GI: reports: Reviewed and negative Musculoskeletal: denies: Extremity swelling PD PAST MEDICAL HISTORY - Past Medical History Past Medical History: Yes Cardiovascular: Hypertension Respiratory: Pneumonia Endocrine/Autoimmune: Type 2 diabetes HEENT: None Psych: None Musculoskeletal: Fibromyalgia - Past Surgical History Past Surgical History: Yes General: Cholecystectomy Derm: Skin grafts - Present Medications Home Medications: Ambulatory Orders Medication Instructions Recorded Confirmed Aspirin [Children's Aspirin] 81 mg PO DAILY 01/26/13 07/19/17 Hydroxychloroquine [Plaquenil] 200 mg PO BID 01/26/13 07/19/17 Lisinopril [Prinivil] 5 mg PO DAILY 01/26/13 07/19/17 [place]-3 Fatty Acids/Fish Oil [Fish 1 tab PO DAILY 01/26/13 07/19/17 Oil 1,000 mg Capsule] Omeprazole 20 mg PO BID 01/26/13 07/19/17 Saxagliptin HCl [Onglyza] 5 mg PO DAILY 01/26/13 07/19/17 Metoprolol Tartrate 50 mg PO DAILY 02/04/14 07/19/17 Cholecalciferol (Vitamin D3) 1 tab PO DAILY 05/02/17 07/19/17 [Vitamin D3] Cyclobenzaprine [Flexeril] 10 mg PO TID PRN #10 tablet 05/02/17 07/19/17 Albuterol Sulf [Ventolin Hfa 1 - 2 puffs INH Q4HR PRN #1 inhaler 07/14/19 Inhaler] - Allergies Allergies/Adverse Reactions: Allergies Allergy/AdvReac Type Severity Reaction Status Date / Time lidocaine Allergy pass out Verified 07/13/19 22:52 - Social History Does the pt smoke?: No Smoking Status: Never smoker Does the pt drink ETOH?: No Does the pt have substance abuse?: No - Immunizations Immunizations are current?: Yes - POLST Patient has POLST: No POLST Status: Full Code PD ED PE NORMAL - Vitals Vital signs reviewed: Yes - General General: Alert and oriented X 3, No acute distress, Well developed/nourished - Neck Neck: Supple, no meningeal sign - Cardiac Cardiac: RRR, No murmur - Respiratory Respiratory: No respiratory distress - Abdomen Abdomen: Soft, Non tender - Extremities Extremities: No edema PD ED PE EXPANDED - Respiratory Respiratory: Wheezing (bilateral end-expiratory wheezing). No: Rhonchi Results - Vitals Vitals: Vital Signs - 24 hr 07/13/19 07/13/19 07/13/19 22:40 23:02 23:10 Temperature 37.7 C H Heart Rate 85 91 95 Respiratory 36 H 24 17 Rate Blood Pressure 182/76 H 157/92 H O2 Saturation 98 99 07/13/19 07/13/19 07/13/19 23:18 23:20 23:37 Temperature Heart Rate 92 94 90 Respiratory 18 18 20 Rate Blood Pressure 158/81 H 158/89 H O2 Saturation 98 95 07/14/19 00:31 Temperature 37.0 C Heart Rate 91 Respiratory 13 Rate Blood Pressure 153/71 H O2 Saturation 97 Oxygen O2 Source Room air - EKG (time done) No standard instances Rate: Rate (enter#) (86) Rhythm: NSR [place]: Normal Intervals: Normal [place], Other (NSIVCD) QRS: Normal Ischemia: Normal ST segments Compare to prior EKG: Unchanged from prior EKG (03/10/19) - Labs Labs: Laboratory Tests 07/13/19 07/13/19 07/13/19 23:01 23:01 23:12 WBC 9.8 RBC 4.85 Hgb 15.2 Hct 42.6 MCV 87.8 MCH 31.3 H MCHC 35.7 RDW 12.8 Plt Count 182 MPV 8.6 Neut # (Auto) 7.4 H Lymph # (Auto) 1.4 L [place] # (Auto) 0.9 Eos # (Auto) 0.1 Baso # (Auto) 0.0 Absolute Nucleated RBC 0.00 Nucleated RBC % 0.0 Sodium 136 Potassium 3.9 Chloride 100 L Carbon Dioxide 25 Anion Gap 11.0 BUN 15 Creatinine 1.1 Estimated GFR (MDRD) 66 L Glucose 171 H Calcium 8.8 Total Bilirubin 1.9 H AST 25 ALT 30 Alkaline Phosphatase 56 Total Protein 7.4 Albumin 4.3 Globulin 3.1 Albumin/Globulin Ratio 1.4 Lipase 31 Influenza A (Rapid) Negative Influenza B (Rapid) Negative - Rads (name of study) chest xray Radiology: Prelim report reviewed, See rad report PD MEDICAL DECISION MAKING - ED course Complexity details: reviewed results, re-evaluated patient, considered differential, d/w patient ED course: patient reported significant improvement after albuterol neb treatment and reev aluation reveals lungs are CTA bilaterally. His cough improved significantly after neb treatment, as well. Departure - Departure Disposition: 01 Home, Self Care Clinical Impression: Bronchitis Condition: Good Instructions: ED Upper Resp Infec Abx Tx Ch Follow-Up: Chung Villalta MD [Primary Care Provider] - Within 3 Days Prescriptions: Albuterol Sulf [Ventolin Hfa Inhaler] 1 - 2 puffs INH Q4HR PRN #1 inhaler PRN Reason: Shortness Of Air/Wheezing Discharge Date/Time: 07/14/19 00:33
[2019-07-14 00:33] VITALS: BP 153/71
== END 2019-07-14 00:33 | disposition home or self-care (01) ==
LOC: ED 22:40
DX: J40 Bronchitis, not specified as acute or chronic (principal); I10 Essential (primary) hypertension; E11.9 Type 2 diabetes mellitus without complications; Z79.82 Long term (current) use of aspirin
CPT/HCPCS: 36415; 71046; 80053; 83690; 85025; 87275; 87276; 93005; 94640; 99284

== ENCOUNTER 2019-10-24 20:20 | Emergency (ER) | payer MEDICARE, OTHER ==
[2019-10-24 21:01] LABS: BASOPHILS # (AUTO) 0.1 10^3/uL (0.0-0.1); BASOPHILS % (AUTO) 0.6 %; EOSINOPHILS # (AUTO) 0.2 10^3/uL (0.0-0.7); EOSINOPHILS % (AUTO) 2.8 %; HGB - HEMOGLOBIN 16.6 g/dL (14.0-18.0); LYMPHOCYTES # (AUTO) 2.4 10^3/uL (1.5-3.5); MEAN CORPUSCULAR HEMOGLOBIN 31.6 pg (27.0-31.0); MEAN CORPUSCULAR HGB CONC 35.3 g/dL (32.0-36.0); MEAN CORPUSCULAR VOLUME 89.4 fL (80.0-94.0); MEAN PLATELET VOLUME 8.6 fL (7.4-11.4); MONOCYTES # (AUTO) 0.7 10^3/uL (0.0-1.0); MONOCYTES % (AUTO) 9.3 %; NEUTROPHILS # (AUTO) 4.3 10^3/uL (1.5-6.6); NEUTROPHILS % (AUTO) 55.9 %; PLT - PLATELET COUNT 191 10^3/uL (130-450); RED BLOOD COUNT 5.26 10^6/uL (4.70-6.10); RED CELL DISTRIBUTION WIDTH 13.3 % (12.0-15.0); WHITE BLOOD COUNT 7.7 x10^3/uL (4.8-10.8)
[2019-10-24 21:08] LABS: ALBUMIN 4.8 g/dL (3.2-5.5); ALBUMIN/GLOBULIN RATIO 1.5 (1.0-2.2); BILIRUBIN,TOTAL 1.2 mg/dL (0.2-1.0); CALCIUM 8.6 mg/dL (8.5-10.3); CREATININE 1.1 mg/dL (0.6-1.2); TOTAL PROTEIN 7.9 g/dL (6.7-8.2)
--- NOTE | 2019-10-24 21:09 | XRAY Report ---
Reason: Chest pain Procedure Date: 10/24/2019 Accession Number: [id number] / [id number] Procedure: XR - Chest 1 View X-Ray CPT Code: 63197 Final Report FULL RESULT: EXAM: CHEST RADIOGRAPHY EXAM DATE: 10/24/2019 09:00 PM. CLINICAL HISTORY: Chest pain. COMPARISON: CHEST 2 VIEW 07/13/2019 11:24 PM. TECHNIQUE: Upright AP view. FINDINGS: Lungs/Pleura: No focal opacities evident. No interstitial abnormality or pulmonary vascular congestion. No pleural effusion. No pneumothorax. Mediastinum: Within exam limitations, the cardiomediastinal contour is normal. Other: None. IMPRESSION: Normal single view chest. RADIA
--- NOTE | 2019-10-24 21:15 | ED Physician Documentation ---
History of Present Illness - Stated complaint Stated Complaint: BP, HEART RATE CONCERNS - Chief complaint Chief Complaint: Cardiac - History obtained from History obtained from: Patient - Additonal information Additional information: Patient comes emergency department complaining of palpitations today. He specifies that this sensation to be a feeling of his heart "skipping a beat". Patient states that this happens to him approximately once a year, and that his director medicare sales, Dr. Dunn, has told him that his heart is doing a "half beat". Patient takes metoprolol, though he is not sure whether this is for his blood pressure or his heart rhythm. He states that he started seeing Dr. Dunn because of the palpitations, but does not have any other medical problems. He states he has been having these episodes for years. The patient states his current symptoms started around noon today. He denies any chest pain or shortness of breath associated With the palpitations. No lightheadedness. The patient denies any throbbing headache. He states he is otherwise feeling fine. No recent dose changes to his metoprolol. He states he takes long-acting metoprolol once every morning and has taken his dose today. Patient is not currently feeling the palpitations. No recent illnesses of any kind. No cough, fever, vomiting, or diarrhea. No other complaints at this time. Patient does note that he has a history of hypothyroidism and takes Synthroid. He denies any recent dose changes on his Synthroid. Review of Systems Ten Systems: 10 systems reviewed and negative Constitutional: reports: Reviewed and negative Eyes: reports: Reviewed and negative Ears: reports: Reviewed and negative Nose: reports: Reviewed and negative Throat: reports: Reviewed and negative Cardiac: reports: Palpitations Respiratory: reports: Reviewed and negative GI: reports: Reviewed and negative : reports: Reviewed and negative Skin: reports: Reviewed and negative Musculoskeletal: reports: Reviewed and negative Neurologic: reports: Reviewed and negative Psychiatric: reports: Reviewed and negative Endocrine: reports: Reviewed and negative Immunocompromised: reports: Reviewed and negative PD PAST MEDICAL HISTORY - Past Medical History Past Medical History: Yes Cardiovascular: Hypertension Respiratory: Pneumonia Endocrine/Autoimmune: Type 2 diabetes HEENT: None Psych: None Musculoskeletal: Fibromyalgia - Past Surgical History Past Surgical History: Yes General: Cholecystectomy Derm: Skin grafts - Present Medications Home Medications: Ambulatory Orders Medication Instructions Recorded Confirmed Aspirin [Children's Aspirin] 81 mg PO DAILY 01/26/13 07/19/17 Hydroxychloroquine [Plaquenil] 200 mg PO BID 01/26/13 07/19/17 Lisinopril [Prinivil] 5 mg PO DAILY 01/26/13 07/19/17 [place]-3 Fatty Acids/Fish Oil [Fish 1 tab PO DAILY 01/26/13 07/19/17 Oil 1,000 mg Capsule] Omeprazole 20 mg PO BID 01/26/13 07/19/17 Saxagliptin HCl [Onglyza] 5 mg PO DAILY 01/26/13 07/19/17 Metoprolol Tartrate 50 mg PO DAILY 02/04/14 07/19/17 Cholecalciferol (Vitamin D3) 1 tab PO DAILY 05/02/17 07/19/17 [Vitamin D3] Cyclobenzaprine [Flexeril] 10 mg PO TID PRN #10 tablet 05/02/17 07/19/17 Albuterol Sulf [Ventolin Hfa 1 - 2 puffs INH Q4HR PRN #1 inhaler 07/14/19 Inhaler] - Allergies Allergies/Adverse Reactions: Allergies Allergy/AdvReac Type Severity Reaction Status Date / Time lidocaine Allergy pass out Verified 10/24/19 20:27 - Social History Does the pt smoke?: No Smoking Status: Never smoker Does the pt drink ETOH?: No Does the pt have substance abuse?: No - Immunizations Immunizations are current?: Yes - POLST Patient has POLST: No POLST Status: Full Code PD ED PE NORMAL - Vitals Vital signs reviewed: Yes - General General: Alert and oriented X 3, No acute distress, Well developed/nourished - HEENT HEENT: Atraumatic, PERRL, EOMI, Moist mucous membranes - Neck Neck: Supple, no meningeal sign - Cardiac Cardiac: RRR, No murmur - Respiratory Respiratory: No respiratory distress, Clear bilaterally - Abdomen Abdomen: Soft, Non tender, Non distended - Back Back: Other (Full range of motion grossly) - Derm Derm: Normal color, Warm and dry, No rash - Extremities Extremities: No deformity, No edema, No calf tenderness / cord - Neuro Neuro: Alert and oriented X 3, fitter up 2-12 intact, No motor deficit, Normal speech, Other (Grossly intact) - Psych Psych: Normal mood, Normal affect Results - Vitals Vitals: Oxygen O2 Source Room air - EKG (time done) 2031 Rate: Rate (enter#) (77) Rhythm: NSR [place]: Normal Intervals: Normal HI, Other (IVCD, PAC's) QRS: Normal Ischemia: Normal ST segments Compare to prior EKG: Old EKG unavailable Computer interpretation: Agree with computer - Labs Labs: Laboratory Tests 10/24/19 10/24/19 10/24/19 20:45 20:45 20:45 WBC 7.7 RBC 5.26 Hgb 16.6 Hct 47.0 MCV 89.4 MCH 31.6 H MCHC 35.3 RDW 13.3 Plt Count 191 MPV 8.6 Neut # (Auto) 4.3 Lymph # (Auto) 2.4 [place] # (Auto) 0.7 Eos # (Auto) 0.2 Baso # (Auto) 0.1 Absolute Nucleated RBC 0.00 Nucleated RBC % 0.0 Sodium 136 Potassium 3.9 Chloride 104 Carbon Dioxide 26 Anion Gap 6.0 BUN 15 Creatinine 1.1 Estimated GFR (MDRD) 66 L Glucose 149 H Calcium 8.6 Total Bilirubin 1.2 H AST 27 ALT 29 Alkaline Phosphatase 83 Troponin I High Sens 9.1 Total Protein 7.9 Albumin 4.8 Globulin 3.1 Albumin/Globulin Ratio 1.5 Lipase 37 TSH 10/24/19 20:45 WBC RBC Hgb Hct MCV MCH MCHC RDW Plt Count MPV Neut # (Auto) Lymph # (Auto) [place] # (Auto) Eos # (Auto) Baso # (Auto) Absolute Nucleated RBC Nucleated RBC % Sodium Potassium Chloride Carbon Dioxide Anion Gap BUN Creatinine Estimated GFR (MDRD) Glucose Calcium Total Bilirubin AST ALT Alkaline Phosphatase Troponin I High Sens Total Protein Albumin Globulin Albumin/Globulin Ratio Lipase TSH 4.08 - Rads (name of study) CXR Radiology: Final report received, EMP read indepedently, See rad report (normal) PD MEDICAL DECISION MAKING - ED course Complexity details: reviewed old records, reviewed results, re-evaluated patient, considered differential, d/w patient ED course: The patient was largely asymptomatic in the emergency dept. His EKG was unremarkable, but his monitor rhythm did intermittently demonstrate a sinus arrhythmia with normal rate. The patient's initial blood pressure was found to be 227/100, though repeat Was found to be much lower 150/60. This trend did continue throughout his stay in the emergency department, and I felt most likely, the initial blood pressure was inaccurate. The patient did state his normal blood pressure is usually 110/60. Patient's labs were unremarkable. He did not have chest pain, shortness of breath, or lightheadedness. have advised him to followup with his PCP or Dr. Dunn, his director medicare sales, if his sx continue. If his blood pressure continues to run high at home, he should also follow up to discuss whether his meds need to be changed. Departure - Departure Disposition: , Self Care Clinical Impression: Palpitations Hypertension Qualifiers: Hypertension type: essential hypertension Qualified Code(s): I10 - Essential (primary) hypertension Condition: Stable Instructions: ED Palpitations Comments: Your labs and EKG look great, as does your chest x-ray. Your thyroid test is still pending at this time; however, your primary care physician may follow-up on these results to see if you are thyroid hormone level should be changed. If you continue to have palpitations for more than the next couple of weeks, please follow-up with your director medicare sales to determine whether your metoprolol dose should be changed. Your blood pressure tonight has been mildly elevated. Please continue to check at home as you usually do, and if you are consistently running greater than 140 for the top number or 90 for the bottom number, you should follow-up with your director medicare sales or primary care physician to discuss whether your medication should be changed. If you develop chest pain, shortness of breath, or lightheadedness in association with the palpitations, you should return to the emergency department. Discharge Date/Time: 10/24/19 21:42
[2019-10-24 21:41] VITALS: BP 165/80
== END 2019-10-24 21:42 | disposition home or self-care (01) ==
LOC: ED 20:20
DX: R00.2 Palpitations (principal); I10 Essential (primary) hypertension; E03.9 Hypothyroidism, unspecified; E11.9 Type 2 diabetes mellitus without complications; Z79.82 Long term (current) use of aspirin
CPT/HCPCS: 36415; 71045; 80053; 83690; 84443; 84484; 85025; 93005; 99284

== ENCOUNTER 2020-05-21 14:12 | Emergency (ER) | payer MEDICARE, OTHER ==
--- NOTE | 2020-05-21 15:03 | ED Physician Documentation ---
History of Present Illness - Stated complaint Stated Complaint: PREVIOUS CRONIN,LT HAND NUMBNESS - Chief complaint Chief Complaint: Neuro - History of Present Illness Timing: Prior to arrival - Additonal information Additional information: 74-year-old male presents to the emergency department for evaluation of a brief episode of left hand numbness. This gentleman reports that he gets ocular migraines on average of once every 2 months or so. This morning he did develop an ocular migraine and had the typical scotoma that he usually has. He laid down to take a nap and when he woke up the migraine was gone. However a few minutes later the migraine began again however this time he began to develop numbness in his left hand. He has no history of previous numbness in the hand with other migraines in the past. He denies that he had facial droop, slurred speech arm or leg weakness. The hand numbness fully abated after about 10 to 15 minutes. He denies that it any point he had chest pain or shortness of breath. At the time of evaluation here in the emergency department he reports that he has no further symptoms and feels back to his baseline health. This gentleman does have a history of Sjogren's, hypertension, diabetes Meds: Metoprolol, Plaquenil, omeprazole, Onglyza, aspirin Review of Systems Constitutional: denies: Fever, Chills Eyes: reports: Other (ocular migraine; scotoma bilaterally) Ears: reports: Reviewed and negative Nose: reports: Reviewed and negative Throat: reports: Reviewed and negative Cardiac: reports: Reviewed and negative Respiratory: reports: Reviewed and negative GI: reports: Reviewed and negative : reports: Reviewed and negative Skin: reports: Reviewed and negative Musculoskeletal: denies: Neck pain, Back pain, Joint pain Neurologic: reports: Numbness (left hand), Headache (ocular migraine). denies: Generalized weakness, Focal weakness, Syncope, Seizure, Confused, Altered mental status, Head injury, LOC Psychiatric: reports: Reviewed and negative PD PAST MEDICAL HISTORY - Past Medical History Cardiovascular: Hypertension Respiratory: Pneumonia Endocrine/Autoimmune: Type 2 diabetes HEENT: None Psych: None Musculoskeletal: Fibromyalgia - Past Surgical History Past Surgical History: Yes General: Cholecystectomy Derm: Skin grafts - Present Medications Home Medications: Ambulatory Orders Medication Instructions Recorded Confirmed Aspirin [Children's Aspirin] 81 mg PO DAILY 01/26/13 07/19/17 Hydroxychloroquine [Plaquenil] 200 mg PO BID 01/26/13 07/19/17 Lisinopril [Prinivil] 5 mg PO DAILY 01/26/13 07/19/17 [place]-3 Fatty Acids/Fish Oil [Fish 1 tab PO DAILY 01/26/13 07/19/17 Oil 1,000 mg Capsule] Omeprazole 20 mg PO BID 01/26/13 07/19/17 Saxagliptin HCl [Onglyza] 5 mg PO DAILY 01/26/13 07/19/17 Metoprolol Tartrate 50 mg PO DAILY 02/04/14 07/19/17 Cholecalciferol (Vitamin D3) 1 tab PO DAILY 05/02/17 07/19/17 [Vitamin D3] Cyclobenzaprine [Flexeril] 10 mg PO TID PRN #10 tablet 05/02/17 07/19/17 Albuterol Sulf [Ventolin Hfa 1 - 2 puffs INH Q4HR PRN #1 inhaler 07/14/19 Inhaler] - Allergies Allergies/Adverse Reactions: Allergies Allergy/AdvReac Type Severity Reaction Status Date / Time lidocaine Allergy pass out Verified 05/21/20 14:28 - Social History Does the pt smoke?: No Smoking Status: Never smoker Does the pt drink ETOH?: No Does the pt have substance abuse?: No - Immunizations Immunizations are current?: Yes - POLST Patient has POLST: No POLST Status: Full Code PD ED PE EXPANDED - General General: Alert, No acute distress, Well developed/nourished - HEENT HEENT: Atraumatic, PERRL, EOMI - Eyes Eyes: PERRL, EOMI - Neck Neck: Supple w/out meningeal sx, No tenderness. No: Limited ROM (Full range of motion in all planes. No midline cervical neck tenderness. No pain with axial loading. Axial loading did not induce left hand numbness) - Cardiac Cardiac: Regular Rate, Radial strong equal, Pedal strong equal, Cap refill < 2 sec - Respiratory Respiratory: Clear to ausultation keya. No: Distress, Labored - Abdomen Abdomen: Normal Bowel sounds. No: Tender to palpation - Derm Derm: Normal color, Warm and dry. No: Rash - Extremities Extremities: Normal - Neuro Neuro: Alert and Oriented X 3, Normal Sensation, Normal Speech, CNII-XII intact, Cerebellar nl, Normal gait, Normal finger nose, Normal speech. No: Nystagmus - GCS Eye Opening: Spontaneous Motor: Obeys Commands Verbal: Oriented Total: 15 Results - Vitals Vitals: Vital Signs - 24 hr 05/21/20 14:24 Temperature 36.1 C L Heart Rate 69 Respiratory 16 Rate Blood Pressure 165/82 H O2 Saturation 97 Oxygen O2 Source Room air PD MEDICAL DECISION MAKING - ED course Complexity details: re-evaluated patient, considered differential, d/w patient ED course: 74-year-old male presents the emergency department for an episode of left hand numbness that lasted about 15 minutes this morning. This followed a typical ocular migraine for him. He does have a history of Sjogren's disease as well. On exam in the emergency department he has no focal neuro deficits and his cerebellar exam is normal. He did not have any neck pain or pain or numbness with axial loading. I doubt cervical radiculopathy. however the isolated Numbness in his left hand is also not consistent with CVA or TIA. This would have to be a very specific lesion in order to cause isolated numbness without any other cerebral or cerebellar deficits. This case was discussed with the patient and I recommend outpatient MRI and further follow-up with his neurologist for his history of ocular migraines. Patient reports to me that he does have a primary care appointment scheduled for next week. Departure - Departure Disposition: 01 Home, Self Care Clinical Impression: Numbness of left hand, Ocular migraine Sjogren's disease Qualifiers: Sjogren's organ involvement: unspecified organ involvement Qualified Code(s): M35.00 - Sicca syndrome, unspecified Condition: Stable Record reviewed to determine appropriate education?: Yes Comments: Nick I would like you to discuss this ED visit with your primary care provider. It may be appropriate to have an MRI completed as an outpatient. However of use we discussed the numbness in the left hand is not likely to be secondary to a stroke event. It may be related to peripheral nerve compression in the arm after sleeping or it may also be related to Sjogren's disease. If at any point you develop a suddenly severe headache, had slurred speech droopy face arm or leg weakness please return to the emergency department. It is also appropriate to schedule follow-up with your neurologist to discuss your ocular migraines and this ED visit
[2020-05-21 15:59] VITALS: BP 142/70
== END 2020-05-21 15:35 | disposition home or self-care (01) ==
LOC: ED 14:12
DX: R20.0 Anesthesia of skin (principal); G43.B0 Ophthalmoplegic migraine, not intractable; M35.00 Sjogren syndrome, unspecified; I10 Essential (primary) hypertension; E11.9 Type 2 diabetes mellitus without complications
CPT/HCPCS: 99281; 99284

== ENCOUNTER 2020-07-23 23:16 | Emergency (ER) | payer MEDICARE, OTHER ==
[2020-07-24] MEDS ORDERED: SODIUM CHLORIDE 0.9% 1,000 ML IV STA (00:20)
--- NOTE | 2020-07-24 00:23 | ED Physician Documentation ---
History of Present Illness - Stated complaint Stated Complaint: IRREGULAR HEART BEAT - Chief complaint Chief Complaint: Cardiac - History obtained from History obtained from: Patient - History of Present Illness Timing: Today - Additonal information Additional information: 75-year-old male with a history of esophageal stricture and symptomatic PVCs has had an increase in his symptomatic PVCs tonight these may have become quite bothersome to the patient. 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 He usually gets in exacerbation of these with excessive outdoor work dehydration sleep deprivation and stress. He does state that currently he is under stress and frustrated that he is not able to eat food well because of his esophageal stricture. He also did go on a long walk with [place] the [place]. Review of Systems Constitutional: denies: Fever Eyes: denies: Decreased vision Ears: denies: Ear pain Nose: denies: Rhinorrhea / runny nose, Congestion Throat: denies: Sore throat Cardiac: reports: Palpitations. denies: Chest pain / pressure Respiratory: denies: Dyspnea, Cough GI: denies: Abdominal Pain, Nausea, Vomiting : denies: Dysuria, Frequency Skin: denies: Rash Musculoskeletal: denies: Neck pain, Back pain, Extremity pain PD PAST MEDICAL HISTORY - Past Medical History Cardiovascular: Hypertension Respiratory: Pneumonia Neuro: Migraines Endocrine/Autoimmune: Type 2 diabetes, HyPOthyroidism HEENT: None Psych: None Musculoskeletal: Fibromyalgia - Past Surgical History Past Surgical History: Yes General: Cholecystectomy Derm: Skin grafts - Present Medications Home Medications: Ambulatory Orders Medication Instructions Recorded Confirmed Aspirin [Children's Aspirin] 81 mg PO DAILY 01/26/13 07/19/17 Hydroxychloroquine [Plaquenil] 200 mg PO BID 01/26/13 07/19/17 Lisinopril [Prinivil] 5 mg PO DAILY 01/26/13 07/19/17 [place]-3 Fatty Acids/Fish Oil [Fish 1 tab PO DAILY 01/26/13 07/19/17 Oil 1,000 mg Capsule] Omeprazole 20 mg PO BID 01/26/13 07/19/17 Saxagliptin HCl [Onglyza] 5 mg PO DAILY 01/26/13 07/19/17 Metoprolol Tartrate 50 mg PO DAILY 02/04/14 07/19/17 Cholecalciferol (Vitamin D3) 1 tab PO DAILY 05/02/17 07/19/17 [Vitamin D3] Cyclobenzaprine [Flexeril] 10 mg PO TID PRN #10 tablet 05/02/17 07/19/17 Albuterol Sulf [Ventolin Hfa 1 - 2 puffs INH Q4HR PRN #1 inhaler 07/14/19 Inhaler] Levothyroxine [Synthroid] 75 mg PO DAILY 07/23/20 07/23/20 - Allergies Allergies/Adverse Reactions: Allergies Allergy/AdvReac Type Severity Reaction Status Date / Time lidocaine Allergy pass out Verified 07/23/20 23:27 - Social History Does the pt smoke?: No Smoking Status: Never smoker Does the pt drink ETOH?: No Does the pt have substance abuse?: No - Immunizations Immunizations are current?: Yes - POLST Patient has POLST: No POLST Status: Full Code PD ED PE NORMAL - Vitals Vital signs reviewed: Yes (hypertensive ) - General General: Alert and oriented X 3, No acute distress, Well developed/nourished - HEENT HEENT: Atraumatic, PERRL, EOMI - Neck Neck: Supple, no meningeal sign - Cardiac Cardiac: RRR, No murmur - Respiratory Respiratory: No respiratory distress, Clear bilaterally - Abdomen Abdomen: Soft, Non tender - Back Back: No CVA TTP, No spinal TTP - Derm Derm: Normal color, Warm and dry, No rash - Extremities Extremities: No deformity, No edema - Neuro Neuro: Alert and oriented X 3, balance recesser 2-12 intact, No motor deficit, No sensory deficit, Normal speech Eye Opening: Spontaneous Motor: Obeys Commands Verbal: Oriented GCS Score: 15 - Psych Psych: Normal mood, Normal affect Results - Vitals Vitals: Vital Signs - 24 hr 07/23/20 07/23/20 07/24/20 23:23 23:45 00:35 Temperature 36.5 C 36.5 C Heart Rate 94 94 66 Respiratory 14 14 13 Rate Blood Pressure 155/94 H 155/94 H 150/83 H O2 Saturation 98 98 99 Oxygen O2 Source Room air - EKG (time done) 2329 Rate: Rate (enter#) (64) Rhythm: NSR Intervals: Wide QRS Compare to prior EKG: Changed from prior EKG (SPT 10-24-2019 there are no PAC's on todays tracing. ) Computer interpretation: Agree with computer - Labs Labs: Laboratory Tests 07/24/20 07/24/20 07/24/20 00:00 00:00 00:00 WBC 7.7 RBC 5.17 Hgb 16.5 Hct 46.7 MCV 90.3 MCH 31.9 H MCHC 35.3 RDW 12.5 Plt Count 188 MPV 8.9 Neut # (Auto) 3.3 Lymph # (Auto) 3.3 [place] # (Auto) 0.7 Eos # (Auto) 0.4 Baso # (Auto) 0.1 Absolute Nucleated RBC 0.00 Nucleated RBC % 0.0 Sodium 136 Potassium 3.9 Chloride 101 Carbon Dioxide 27 Anion Gap 8.0 BUN 16 Creatinine 1.2 Estimated GFR (MDRD) 59 L Glucose 176 H Calcium 9.3 Total Bilirubin 1.0 AST 27 ALT 29 Alkaline Phosphatase 78 Troponin I High Sens 10.0 Total Protein 7.6 Albumin 4.8 Globulin 2.8 Albumin/Globulin Ratio 1.7 Lipase 43 Procedures - IVC sono (time) 1219 Bedside IVC sono: IVC measures (cm) (1.19), Dehydration (est 1 liter deficit) PD MEDICAL DECISION MAKING - ED course Complexity details: reviewed old records, reviewed results, re-evaluated patient, considered differential, d/w patient ED course: 75-year-old male who is return to the emergency department again with symptomatic PVCs has resolution of his symptoms upon entering the building. He is found to be minimally dehydrated on interrogation the inferior vena cava is administered a liter of saline. He has had these symptoms previously these of been investigated they usually have some reason behind them and the patient today states only that he is very frustrated with not being able to eat. He last had a dilation done about 1 month ago and is not able to consume much in the way of any solid food. Departure - Departure Disposition: 01 Home, Self Care Clinical Impression: Palpitations Condition: Stable Instructions: ED Palpitations Follow-Up: Chung Villalta MD [Physician No Access] - Discharge Date/Time: 07/24/20 01:37
[2020-07-24 00:34] LABS: BASOPHILS # (AUTO) 0.1 10^3/uL (0.0-0.1); BASOPHILS % (AUTO) 0.9 %; EOSINOPHILS # (AUTO) 0.4 10^3/uL (0.0-0.7); EOSINOPHILS % (AUTO) 4.7 %; HGB - HEMOGLOBIN 16.5 g/dL (14.0-18.0); LYMPHOCYTES # (AUTO) 3.3 10^3/uL (1.5-3.5); LYMPHOCYTES % (AUTO) 42.3 %; MEAN CORPUSCULAR HEMOGLOBIN 31.9 pg (27.0-31.0); MEAN CORPUSCULAR HGB CONC 35.3 g/dL (32.0-36.0); MEAN CORPUSCULAR VOLUME 90.3 fL (80.0-94.0); MEAN PLATELET VOLUME 8.9 fL (7.4-11.4); MONOCYTES # (AUTO) 0.7 10^3/uL (0.0-1.0); MONOCYTES % (AUTO) 9.6 %; NEUTROPHILS # (AUTO) 3.3 10^3/uL (1.5-6.6); NEUTROPHILS % (AUTO) 42.2 %; PLT - PLATELET COUNT 188 10^3/uL (130-450); RED BLOOD COUNT 5.17 10^6/uL (4.70-6.10); RED CELL DISTRIBUTION WIDTH 12.5 % (12.0-15.0); WHITE BLOOD COUNT 7.7 x10^3/uL (4.8-10.8)
[2020-07-24 00:37] VITALS: BP 150/83
[2020-07-24 00:44] LABS: ALBUMIN 4.8 g/dL (3.2-5.5); ALBUMIN/GLOBULIN RATIO 1.7 (1.0-2.2); CALCIUM 9.3 mg/dL (8.5-10.3); CREATININE 1.2 mg/dL (0.6-1.2); TOTAL PROTEIN 7.6 g/dL (6.7-8.2)
== END 2020-07-24 01:37 | disposition home or self-care (01) ==
LOC: ED 23:16
DX: I49.3 Ventricular premature depolarization (principal); E86.0 Dehydration; K22.2 Esophageal obstruction; I10 Essential (primary) hypertension; E11.9 Type 2 diabetes mellitus without complications; Z79.82 Long term (current) use of aspirin
CPT/HCPCS: 36415; 80053; 83690; 84484; 85025; 93005; 99283; 99284

== ENCOUNTER 2021-11-02 22:56 | Emergency (ER) | payer MEDICARE, OTHER ==
[2021-11-02 23:28] LABS: BASOPHILS # (AUTO) 0.1 10^3/uL (0.0-0.1); BASOPHILS % (AUTO) 1.1 %; EOSINOPHILS # (AUTO) 0.3 10^3/uL (0.0-0.7); EOSINOPHILS % (AUTO) 4.2 %; HCT - HEMATOCRIT 42.4 % (42.0-52.0); HGB - HEMOGLOBIN 15.5 g/dL (14.0-18.0); LYMPHOCYTES # (AUTO) 2.7 10^3/uL (1.5-3.5); LYMPHOCYTES % (AUTO) 37.8 %; MEAN CORPUSCULAR HEMOGLOBIN 32.8 pg (27.0-31.0); MEAN CORPUSCULAR HGB CONC 36.6 g/dL (32.0-36.0); MEAN CORPUSCULAR VOLUME 89.8 fL (80.0-94.0); MEAN PLATELET VOLUME 8.5 fL (7.4-11.4); MONOCYTES # (AUTO) 0.7 10^3/uL (0.0-1.0); MONOCYTES % (AUTO) 9.6 %; NEUTROPHILS # (AUTO) 3.3 10^3/uL (1.5-6.6); PLT - PLATELET COUNT 183 10^3/uL (130-450); RED BLOOD COUNT 4.72 10^6/uL (4.70-6.10); RED CELL DISTRIBUTION WIDTH 12.4 % (12.0-15.0); WHITE BLOOD COUNT 7.1 x10^3/uL (4.8-10.8)
[2021-11-02 23:41] LABS: ALBUMIN 4.2 g/dL (3.2-5.5); ALBUMIN/GLOBULIN RATIO 1.5 (1.0-2.2); BILIRUBIN,TOTAL 0.6 mg/dL (0.2-1.0); CALCIUM 8.9 mg/dL (8.5-10.3); CREATININE 1.2 mg/dL (0.6-1.2); POTASSIUM 3.9 mmol/L (3.5-5.0)
--- NOTE | 2021-11-02 23:50 | ED Physician Documentation ---
History of Present Illness - Stated complaint Stated Complaint: IRREGULAR HB/CHILLS - Chief complaint Chief Complaint: Cardiac - History obtained from History obtained from: Patient - History of Present Illness Timing: Enter time (22:30), Today Pain level max: 0 Pain level now: 0 Improved by: no ameliorating factors Worsened by: no exacerbating factors - Additonal information Additional information: Patient was in bed, still awake, at 22:30 when he experienced shaking chills and palpitations perceived as frequent skipped beats. Denies chest pain, dyspnea, cough, fever. His symptoms have resolved by the time of this evaluation. Review of Systems Constitutional: reports: Chills. denies: Fever, Sweats Cardiac: reports: Palpitations. denies: Chest pain / pressure, Pedal edema Respiratory: reports: Reviewed and negative GI: reports: Reviewed and negative PD PAST MEDICAL HISTORY - Past Medical History Past Medical History: Yes Cardiovascular: Hypertension Respiratory: Pneumonia Neuro: Migraines Endocrine/Autoimmune: Type 2 diabetes, HyPOthyroidism HEENT: None Psych: None Musculoskeletal: Fibromyalgia - Past Surgical History Past Surgical History: Yes General: Cholecystectomy Derm: Skin grafts - Present Medications Home Medications: Ambulatory Orders Medication Instructions Recorded Confirmed Aspirin [Children's Aspirin] 81 mg PO DAILY 01/26/13 07/19/17 Hydroxychloroquine [Plaquenil] 200 mg PO BID 01/26/13 07/19/17 [place]-3 Fatty Acids/Fish Oil [Fish 1 tab PO DAILY 01/26/13 07/19/17 Oil 1,000 mg Capsule] Omeprazole 20 mg PO BID 01/26/13 07/19/17 Saxagliptin HCl [Onglyza] 5 mg PO DAILY 01/26/13 07/19/17 lisinopriL [Prinivil] 5 mg PO DAILY 01/26/13 07/19/17 Metoprolol Tartrate 50 mg PO DAILY 02/04/14 07/19/17 Cholecalciferol (Vitamin D3) 1 tab PO DAILY 05/02/17 07/19/17 [Vitamin D3] Cyclobenzaprine [Flexeril] 10 mg PO TID PRN #10 tablet 05/02/17 07/19/17 Albuterol Sulf [Ventolin Hfa 1 - 2 puffs INH Q4HR PRN #1 inhaler 07/14/19 Inhaler] Levothyroxine [Synthroid] 75 mg PO DAILY 07/23/20 07/23/20 - Allergies Allergies/Adverse Reactions: Allergies Allergy/AdvReac Type Severity Reaction Status Date / Time lidocaine Allergy pass out Verified 07/23/20 23:27 - Social History Does the pt smoke?: No Smoking Status: Never smoker Does the pt drink ETOH?: No Does the pt have substance abuse?: No - Immunizations Immunizations are current?: Yes - POLST Patient has POLST: No POLST Status: Full Code PD ED PE NORMAL - Vitals Vital signs reviewed: Yes - General General: Alert and oriented X 3, No acute distress, Well developed/nourished - Cardiac Cardiac: RRR, No murmur, No gallop, No rub - Respiratory Respiratory: No respiratory distress, Clear bilaterally - Abdomen Abdomen: Soft, Non tender - Derm Derm: Normal color, Warm and dry - Extremities Extremities: No edema Results - Vitals Vitals: Oxygen O2 Source Room air - EKG (time done) No standard instances Rate: Rate (enter#) (66) Rhythm: NSR [place]: Normal Intervals: Normal MA, Other (NSIVCD) Ischemia: Other (PVC) Computer interpretation: Disagree with computer (No ST elevations) - Labs Labs: Laboratory Tests 11/02/21 11/02/21 11/02/21 23:23 23:23 23:23 WBC 7.1 RBC 4.72 Hgb 15.5 Hct 42.4 MCV 89.8 MCH 32.8 H MCHC 36.6 H RDW 12.4 Plt Count 183 MPV 8.5 Neut # (Auto) 3.3 Lymph # (Auto) 2.7 [place] # (Auto) 0.7 Eos # (Auto) 0.3 Baso # (Auto) 0.1 Absolute Nucleated RBC 0.00 Nucleated RBC % 0.0 Sodium 136 Potassium 3.9 Chloride 102 Carbon Dioxide 25 Anion Gap 9.0 BUN 16 Creatinine 1.2 Estimated GFR (MDRD) 59 L Glucose 170 H Calcium 8.9 Total Bilirubin 0.6 AST 25 ALT 27 Alkaline Phosphatase 77 Troponin I High Sens 9.0 Total Protein 7.0 Albumin 4.2 Globulin 2.8 Albumin/Globulin Ratio 1.5 Lipase 45 - Rads (name of study) chest xray Radiology: Prelim report reviewed, See rad report PD MEDICAL DECISION MAKING - ED course Complexity details: reviewed results, re-evaluated patient, considered differ ential, d/w patient ED course: chief c/o shaking chills and skipped beat palpitations. Afebrile in ED with unremarkable CBC, ER abdominal panel, CXR, and EKG. Normal hs-cTn. Results d/w patient, return precautions discussed. Etiology of symptoms not apparent at this time. Departure - Departure Disposition: 01 Home, Self Care Clinical Impression: Palpitations Condition: Good Instructions: ED Palpitations Follow-Up: Chung Villalta MD [Primary Care Provider] - Within 1 week Discharge Date/Time: 11/03/21 00:27
--- NOTE | 2021-11-03 00:13 | XRAY Report ---
PROCEDURE: Chest 1 View X-Ray INDICATIONS: Chest pain TECHNIQUE: One view of the chest was acquired. COMPARISON: 10/24/2019 FINDINGS: Surgical changes and devices: None. Lungs and pleura: No pleural effusions or pneumothorax. Lungs are clear. Mediastinum: Mediastinal contours appear normal. Heart size is normal. Bones and chest wall: No suspicious bony lesions. Overlying soft tissues appear unremarkable. IMPRESSION: No acute cardiopulmonary disease. Reviewed by: Vandana Reilly MD on 11/03/2021 12:15 AM PDT Approved by: Vandana Reilly MD on 11/03/2021 12:15 AM PDT Station ID: [id number]
[2021-11-03 00:24] VITALS: BP 153/65
== END 2021-11-03 00:27 | disposition home or self-care (01) ==
LOC: ED 22:56
DX: R00.2 Palpitations (principal); E11.9 Type 2 diabetes mellitus without complications; I10 Essential (primary) hypertension
CPT/HCPCS: 36415; 80053; 83690; 84484; 85025; 93005; 99283; 99284

== ENCOUNTER 2022-05-29 00:20 | Emergency (ER) | payer MEDICARE, OTHER ==
[2022-05-29 00:55] LABS: BASOPHILS # (AUTO) 0.1 10^3/uL (0.0-0.1); BASOPHILS % (AUTO) 1.3 %; EOSINOPHILS # (AUTO) 0.4 10^3/uL (0.0-0.7); EOSINOPHILS % (AUTO) 4.2 %; HCT - HEMATOCRIT 44.7 % (42.0-52.0); HGB - HEMOGLOBIN 16.2 g/dL (14.0-18.0); LYMPHOCYTES # (AUTO) 3.7 10^3/uL (1.5-3.5); LYMPHOCYTES % (AUTO) 44.6 %; MEAN CORPUSCULAR HGB CONC 36.2 g/dL (32.0-36.0); MEAN CORPUSCULAR VOLUME 88.3 fL (80.0-94.0); MEAN PLATELET VOLUME 8.6 fL (7.4-11.4); MONOCYTES # (AUTO) 0.8 10^3/uL (0.0-1.0); NEUTROPHILS # (AUTO) 3.3 10^3/uL (1.5-6.6); NEUTROPHILS % (AUTO) 39.7 %; PLT - PLATELET COUNT 194 10^3/uL (130-450); RED BLOOD COUNT 5.06 10^6/uL (4.70-6.10); RED CELL DISTRIBUTION WIDTH 12.4 % (12.0-15.0); WHITE BLOOD COUNT 8.4 x10^3/uL (4.8-10.8)
[2022-05-29 01:08] LABS: ALBUMIN 4.5 g/dL (3.2-5.5); ALBUMIN/GLOBULIN RATIO 1.6 (1.0-2.2); BILIRUBIN,TOTAL 0.9 mg/dL (0.2-1.0); CALCIUM 9.3 mg/dL (8.5-10.3); POTASSIUM 4.1 mmol/L (3.5-5.0); TOTAL PROTEIN 7.4 g/dL (6.7-8.2)
--- NOTE | 2022-05-29 01:28 | ED Physician Documentation ---
History of Present Illness - Stated complaint Stated Complaint: heart palpitations - Chief complaint Chief Complaint: Cardiac - History obtained from History obtained from: Patient - Additonal information Additional information: Patient is a 76-year-old male presenting for evaluation of palpitations around 1130 this evening and associated chills. He has had similar episodes in the past. He reports the palpitations felt like his heart was skipping a beat. He denies associated dizziness, chest pain or difficulty breathing.His symptoms lasted a few minutes and have since resolved. He denies recently feeling ill with fever, cough or congestion. Review of Systems Constitutional: denies: Fever Nose: denies: Congestion Cardiac: reports: Palpitations. denies: Chest pain / pressure Respiratory: denies: Dyspnea, Cough GI: denies: Abdominal Pain, Vomiting : denies: Dysuria Musculoskeletal: denies: Back pain Neurologic: denies: Headache PD PAST MEDICAL HISTORY - Past Medical History Past Medical History: Yes Cardiovascular: Hypertension Respiratory: Pneumonia Neuro: Migraines Endocrine/Autoimmune: Type 2 diabetes, HyPOthyroidism HEENT: None Psych: None Musculoskeletal: Fibromyalgia - Past Surgical History Past Surgical History: Yes General: Cholecystectomy Derm: Skin grafts - Present Medications Home Medications: Ambulatory Orders Medication Instructions Recorded Confirmed Aspirin [Children's Aspirin] 81 mg PO DAILY 01/26/13 05/29/22 Hydroxychloroquine [Plaquenil] 200 mg PO BID 01/26/13 05/29/22 [place]-3 Fatty Acids/Fish Oil [Fish 1 tab PO DAILY 01/26/13 05/29/22 Oil 1,000 mg Capsule] Omeprazole 20 mg PO BID 01/26/13 05/29/22 Saxagliptin HCl [Onglyza] 5 mg PO DAILY 01/26/13 05/29/22 lisinopriL [Prinivil] 5 mg PO DAILY 01/26/13 05/29/22 Metoprolol Tartrate 50 mg PO DAILY 02/04/14 05/29/22 Cholecalciferol (Vitamin D3) 1 tab PO DAILY 05/02/17 05/29/22 [Vitamin D3] Cyclobenzaprine [Flexeril] 10 mg PO TID PRN #10 tablet 05/02/17 05/29/22 Albuterol Sulf [Ventolin Hfa 1 - 2 puffs INH Q4HR PRN #1 inhaler 07/14/19 05/29/22 Inhaler] Levothyroxine [Synthroid] 75 mg PO DAILY 07/23/20 05/29/22 Docusate Sodium 100Mg Capsule 100 mg PO DAILY #20 cap 12/11/21 05/29/22 [Colace 100Mg Capsule] - Allergies Allergies/Adverse Reactions: Allergies Allergy/AdvReac Type Severity Reaction Status Date / Time lidocaine Allergy pass out Verified 05/29/22 00:52 - Social History Does the pt smoke?: No Smoking Status: Never smoker Does the pt drink ETOH?: No Does the pt have substance abuse?: No - Immunizations Immunizations are current?: Yes - POLST Patient has POLST: No POLST Status: Full Code PD ED PE NORMAL - General General: Alert and oriented X 3, No acute distress, Well developed/nourished - HEENT HEENT: Atraumatic, Moist mucous membranes - Neck Neck: Supple, no meningeal sign - Cardiac Cardiac: RRR, Strong equal pulses - Respiratory Respiratory: No respiratory distress, Clear bilaterally - Abdomen Abdomen: Soft, Non tender - Derm Derm: Warm and dry - Extremities Extremities: No edema, No calf tenderness / cord - Neuro Neuro: Alert and oriented X 3, No motor deficit, Normal speech Results - Vitals Vitals: Vital Signs - 24 hr 05/29/22 05/29/22 00:24 02:18 Temperature 36.8 C 36.6 C Heart Rate 75 65 Respiratory 16 20 Rate Blood Pressure 172/89 H 149/76 H O2 Saturation 100 99 Oxygen O2 Source Room air - EKG (time done) 1234 Rate: Rate (enter#) (73) Rhythm: NSR [place]: Normal Ischemia: No: ST elevation c/w ischemia - Labs Labs: Laboratory Tests 05/29/22 05/29/22 05/29/22 00:30 00:30 00:30 WBC 8.4 RBC 5.06 Hgb 16.2 Hct 44.7 MCV 88.3 MCH 32.0 H MCHC 36.2 H RDW 12.4 Plt Count 194 MPV 8.6 Neut # (Auto) 3.3 Lymph # (Auto) 3.7 H [place] # (Auto) 0.8 Eos # (Auto) 0.4 Baso # (Auto) 0.1 Absolute Nucleated RBC 0.00 Nucleated RBC % 0.0 Sodium 139 Potassium 4.1 Chloride 103 Carbon Dioxide 27 Anion Gap 9.0 BUN 16 Creatinine 1.0 Estimated GFR (MDRD) 73 L Glucose 137 H Calcium 9.3 Total Bilirubin 0.9 AST 26 ALT 27 Alkaline Phosphatase 71 Troponin I High Sens 11.1 Total Protein 7.4 Albumin 4.5 Globulin 2.9 Albumin/Globulin Ratio 1.6 Lipase 47 PD MEDICAL DECISION MAKING - ED course Complexity details: reviewed results, re-evaluated patient, d/w patient ED course: Patient presenting for evaluation of palpitations that resolved prior to arrival. He has a history of similar presentations in the past.His EKG here demonstrates a sinus rhythm. He denies chest pain or difficulty breathing. His labs were reviewed without significant abnormalities. Patient has been asymptomatic here. He has been counseled to follow-up with his electrical engineering technician and advised on return precautions. Departure - Departure Disposition: 01 Home, Self Care Clinical Impression: Palpitations Condition: Stable Instructions: ED Palpitations Comments: Please follow-up with your electrical engineering technician regarding your palpitations. Please make sure you are staying hydrated and get plenty of rest tomorrow. If you have any worsening symptoms such as chest pain or difficulty breathing then please consider returning to the emergency department.
--- NOTE | 2022-05-29 02:00 | XRAY Report ---
PROCEDURE: Chest 1 View X-Ray INDICATIONS: palpitations TECHNIQUE: One view of the chest was acquired. COMPARISON: Prior chest plain film 11/02/21. FINDINGS: Surgical changes and devices: None. Lungs and pleura: No pleural effusions or pneumothorax. Lungs are clear. Mediastinum: Mediastinal contours appear normal. Heart size is normal. Bones and chest wall: No suspicious bony lesions. Overlying soft tissues appear unremarkable. IMPRESSION: Normal for age, no sign of cardiomegaly or CHF. Reviewed by: Russ Le MD on 05/29/2022 2:08 AM PST Approved by: Russ Le MD on 05/29/2022 2:08 AM PST Station ID: [id number]
[2022-05-29 02:18] VITALS: BP 149/76
== END 2022-05-29 02:20 | disposition home or self-care (01) ==
LOC: ED 00:20
DX: R00.2 Palpitations (principal); R68.83 Chills (without fever); I10 Essential (primary) hypertension; E11.9 Type 2 diabetes mellitus without complications; Z79.82 Long term (current) use of aspirin
CPT/HCPCS: 36415; 80053; 83690; 84484; 85025; 93005; 99282; 99284

== ENCOUNTER 2023-04-09 06:14 | Emergency (ER) | payer MEDICARE, OTHER ==
--- OUTSIDE RECORDS SUMMARY | 2023-04-09 07:22 | EXTERNAL MEDICAL SUMMARY RPT | Continuity of Care Document ---
Author Name Unknown Address [address] [place] [address] Phone Organization [facility] Address [address] [place], [place] [id number] Phone Problems date description facility 2023-01-11 10:22 Dysphagia, unspecified [facility] 2023-01-11 11:17 Dysphagia, unspecified [facility] Social History date description facility
--- NOTE | 2023-04-09 07:24 | ED Physician Documentation ---
PD HPI URI - Stated complaint Stated Complaint: CHEST CONGESTION - Chief complaint Chief Complaint: General - History obtained from History obtained from: Patient - History of Present Illness Timing - onset: How many days ago (4) Timing duration: Days (4) Timing details: Gradual onset, Still present Associated symptoms: Fever, Chills, Nasal congestion, Swollen nodes, Dry cough, Dyspnea. No: Sore throat Contributing factors: Sick contact (some friend were sick last week. Pt had been doing yardwork and initially thought just allergies. But then feverish and cough, malise. Now dyspne with cough and wheezing.). No: Immunocompromised, COPD / asthma Review of Systems Constitutional: reports: Fever, Chills Nose: reports: Rhinorrhea / runny nose, Congestion Throat: denies: Sore throat Cardiac: denies: Chest pain / pressure Respiratory: reports: Dyspnea, Cough, Wheezing GI: reports: Nausea. denies: Abdominal Pain, Vomiting, Diarrhea PD PAST MEDICAL HISTORY - Past Medical History Cardiovascular: Hypertension Respiratory: Pneumonia Neuro: Migraines Endocrine/Autoimmune: Type 2 diabetes, HyPOthyroidism HEENT: None Psych: None Musculoskeletal: Fibromyalgia - Past Surgical History Past Surgical History: Yes General: Cholecystectomy Derm: Skin grafts - Present Medications Home Medications: Ambulatory Orders Medication Instructions Recorded Confirmed Aspirin [Children's Aspirin] 81 mg PO DAILY 01/26/13 05/29/22 Hydroxychloroquine [Plaquenil] 200 mg PO BID 01/26/13 05/29/22 [place]-3 Fatty Acids/Fish Oil [Fish 1 tab PO DAILY 01/26/13 05/29/22 Oil 1,000 mg Capsule] Omeprazole 20 mg PO BID 01/26/13 05/29/22 Saxagliptin HCl [Onglyza] 5 mg PO DAILY 01/26/13 05/29/22 lisinopriL [Prinivil] 5 mg PO DAILY 01/26/13 05/29/22 Metoprolol Tartrate 50 mg PO DAILY 02/04/14 05/29/22 Cholecalciferol (Vitamin D3) 1 tab PO DAILY 05/02/17 05/29/22 [Vitamin D3] Cyclobenzaprine [Flexeril] 10 mg PO TID PRN #10 tablet 05/02/17 05/29/22 Albuterol Sulf [Ventolin Hfa 1 - 2 puffs INH Q4HR PRN #1 inhaler 07/14/19 05/29/22 Inhaler] Levothyroxine [Synthroid] 75 mg PO DAILY 07/23/20 05/29/22 Docusate Sodium 100Mg Capsule 100 mg PO DAILY #20 cap 12/11/21 05/29/22 [Colace 100Mg Capsule] Albuterol Sulf [Ventolin Hfa 2 - 3 puffs INH QID #1 each 04/09/23 Inhaler] Benzonatate [Tessalon] 100 mg PO TID PRN #20 cap 04/09/23 dexAMETHasone [Decadron] 4 mg PO DAILY #5 tablet 04/09/23 - Allergies Allergies/Adverse Reactions: Allergies Allergy/AdvReac Type Severity Reaction Status Date / Time lidocaine Allergy pass out Verified 05/29/22 00:52 - Social History Does the pt smoke?: No Smoking Status: Never smoker Does the pt drink ETOH?: No Does the pt have substance abuse?: No - Immunizations Immunizations are current?: Yes - POLST Patient has POLST: No POLST Status: Full Code PD ED PE NORMAL - Vitals Vital signs reviewed: Yes - General General: Alert and oriented X 3, Well developed/nourished - HEENT HEENT: Ears normal, Moist mucous membranes, Pharynx benign - Neck Neck: Supple, no meningeal sign, No adenopathy - Cardiac Cardiac: RRR, No murmur - Respiratory Respiratory: No respiratory distress. No: Clear bilaterally (no coarse sounds. Has moderate to marked wheezing diffusely with mild prolonged expriatory phase. No accessoyr muscle use. ) - Abdomen Abdomen: Soft, Non tender - Derm Derm: Normal color, Warm and dry - Extremities Extremities: No edema, No calf tenderness / cord - Neuro Neuro: Alert and oriented X 3, No motor deficit, Normal speech Results - Vitals Vitals: Vital Signs - 24 hr 04/09/23 04/09/23 04/09/23 06:25 08:31 08:34 Temperature 36.8 C Heart Rate 68 65 78 Respiratory 17 20 14 Rate Blood Pressure 155/132 H 116/98 H O2 Saturation 99 97 Oxygen O2 Source Room air - Labs Labs: Laboratory Tests 04/09/23 06:30 Nasal Adenovirus (PCR) NOT DETECTED Nasal B. parapertussis DNA (PCR) NOT DETECTED Nasal Coronavir 229E PCR NOT DETECTED Nasal Coronavir HKU1 PCR NOT DETECTED Nasal Coronavir NL63 PCR NOT DETECTED Nasal Coronavir OC43 PCR NOT DETECTED Nasal Enterovir/Rhinovir PCR DETECTED A Nasal Influenza B PCR NOT DETECTED Nasal Influenza A PCR NOT DETECTED Nasal Parainfluen 1 PCR NOT DETECTED Nasal Parainfluen 2 PCR NOT DETECTED Nasal Parainfluen 3 PCR NOT DETECTED Nasal Parainfluen 4 PCR NOT DETECTED Nasal RSV (PCR) NOT DETECTED Nasal B.pertussis DNA PCR NOT DETECTED Nasal C.pneumoniae (PCR) NOT DETECTED Reese Human Metapneumo PCR NOT DETECTED Nasal M.pneumoniae (PCR) NOT DETECTED Nasal SARS-CoV-2 (PCR) NOT DETECTED - Rads (name of study) chest xray Relevant Findings:: Prelim report reviewed (no focal consolidation. SOme haziness left base most likely atelectasis given eventration of the left diaphragm. ) PD Medical Decision Making - ED course Complexity details: re-evaluated patient (he has signifcantly less wheezing and cough and feeling improved breathing. Vitals still good. No histoyr of COPD/asthma, but does have notable wheeze component with rhinovirus positive PCR. ), considered differential (seems URI with cough and wheezing. Less likely bacterial. Can get xray to eval lungs. Has wheezing so try nebulizer with spacer teaching. ), d/w patient Departure - Departure Disposition: 01 Home, Self Care Clinical Impression: Upper respiratory infection, acute, Acute bronchitis due to Rhinovirus Condition: Stable Record reviewed to determine appropriate education?: Yes Instructions: ED URI Viral W Wheezing Follow-Up: Ravinder Ro MD [Primary Care Provider] - Prescriptions: dexAMETHasone [Decadron] 4 mg PO DAILY #5 tablet Benzonatate [Tessalon] 100 mg PO TID PRN #20 cap PRN Reason: Cough Albuterol Sulf [Ventolin Hfa Inhaler] 2 - 3 puffs INH QID #1 each Comments: Your chest x-ray is clear with any signs of pneumonia. Your nose viral panel test is positive for rhinovirus also called enterovirus. This is a upper respiratory infection that will tend to cause a lot of bronchial inflammation and wheezing like you have. There could be some element of environmental allergies or irritation to since you have been doing some outside work. You were having a lot of wheezing that does seem to be decreased with the albuterol. We can continue this with an albuterol inhaler 2 to 3 puffs 4 times daily for the next several days to a week at least. The duration of illness typically is about 5 to 7 days of feeling ill along with the other symptoms of coughing and wheezing. The cough and wheeze at times can persist for even several weeks. You can continue the inhaler as long as its effective. In the short-term additionally would use dexamethasone steroid anti-inflammatory to reduce bronchial irritation. He can add benzonatate/Tessalon to help with cough. Is still okay to be using [id number] cough medicines as well. Tylenol if needed for fevers or pains. Stay adequately hydrated. Continue your other usual medicines. I sent your prescriptions to the [facility] pharmacy. Forms: PCP List Discharge Date/Time: 04/09/23 08:32
[2023-04-09 07:29] LABS: B. PARAPERTUSSIS- RESP PCR PAN NOT DETECTED; B. PERTUSSIS- RESP PCR PANEL NOT DETECTED; C. PNEUMONIAE- RESP PCR PANEL NOT DETECTED; CORONAVIRUS 229E-RESP PCR NOT DETECTED; CORONAVIRUS HKU1-RESP PCR NOT DETECTED; CORONAVIRUS NL63-RESP PCR NOT DETECTED; CORONAVIRUS OC43-RESP PCR NOT DETECTED; HUMAN METAPNEUMOVIRUS NOT DETECTED; INFLUENZA A- RESP PCR PANEL NOT DETECTED; INFLUENZA B - RESP PCR PANEL NOT DETECTED; M. PNEUMONIAE- RESP PCR PANEL NOT DETECTED; PARAINFLUENZA VIRUS 1 NOT DETECTED; PARAINFLUENZA VIRUS 2 NOT DETECTED; PARAINFLUENZA VIRUS 3 NOT DETECTED; PARAINFLUENZA VIRUS 4 NOT DETECTED; RHINOVIRUS/ENTEROVIRUS DETECTED; RSV- RESP PCR PANEL NOT DETECTED; SARS-CoV-2 -RESP PCR PANEL NOT DETECTED
[2023-04-09] MEDS ORDERED: ALBUTEROL NEB 2.5 MG/3 ML INH STA (07:40)
[2023-04-09] MEDS ORDERED: BENZONATATE 100 MG CAPSULE PO STA (07:40)
[2023-04-09] MEDS ORDERED: dexAMETHasone 4 MG TABLET PO STA (07:40)
--- NOTE | 2023-04-09 08:06 | XRAY Report ---
PROCEDURE: Chest 1 View X-Ray INDICATIONS: cough/congestion TECHNIQUE: One view of the chest was acquired. COMPARISON: 05/29/2022. FINDINGS: Surgical changes and devices: None. Lungs and pleura: Stable eventration of the left hemidiaphragm. Minimal hazy opacity of the left hannah g base without focal consolidation. No pneumothorax or pleural effusion. Mediastinum: Mediastinal contours appear normal. Heart size is normal. Bones and chest wall: No suspicious bony lesions. Overlying soft tissues appear unremarkable. IMPRESSION: Minimal left basilar hazy opacities favored to represent atelectasis given presence of eventration of the left hemidiaphragm. No focal consolidation seen. Early developing airspace disease not excluded if clinically appropriate. Findings are concordant with preliminary interpretation provided by [facility]. Reviewed by: Virgil Weeks MD on 04/09/2023 8:05 AM PDT Approved by: Virgil Weeks MD on 04/09/2023 8:05 AM PDT Station ID: [id number]
[2023-04-09 08:39] VITALS: BP 116/98; O2SAT 97
== END 2023-04-09 08:32 | disposition home or self-care (01) ==
LOC: ED 06:14
DX: J20.6 Acute bronchitis due to rhinovirus (principal); J06.9 Acute upper respiratory infection, unspecified; I10 Essential (primary) hypertension; E11.9 Type 2 diabetes mellitus without complications; E03.9 Hypothyroidism, unspecified; Z20.822 Contact with and (suspected) exposure to COVID-19; Z79.82 Long term (current) use of aspirin; Z79.899 Other long term (current) drug therapy
CPT/HCPCS: 71045; 87633; 94640; 94664; 99284; A9270; J8540

== ENCOUNTER 2023-08-19 09:42 | Emergency (ER) | payer MEDICARE, OTHER ==
[2023-08-19] MEDS: GLUCAGON 1 MG/ML VIAL IVP STA (10:35)
[2023-08-19 11:51] LABS: BASOPHILS # (AUTO) 0.1 10^3/uL (0.0-0.1); EOSINOPHILS # (AUTO) 0.3 10^3/uL (0.0-0.7); EOSINOPHILS % (AUTO) 4.2 %; HCT - HEMATOCRIT 46.5 % (42.0-52.0); HGB - HEMOGLOBIN 16.4 g/dL (14.0-18.0); LYMPHOCYTES % (AUTO) 29.4 %; MEAN CORPUSCULAR HEMOGLOBIN 31.8 pg (27.0-31.0); MEAN CORPUSCULAR HGB CONC 35.3 g/dL (32.0-36.0); MEAN CORPUSCULAR VOLUME 90.3 fL (80.0-94.0); MONOCYTES # (AUTO) 0.7 10^3/uL (0.0-1.0); MONOCYTES % (AUTO) 9.8 %; NEUTROPHILS # (AUTO) 3.9 10^3/uL (1.5-6.6); NEUTROPHILS % (AUTO) 55.5 %; PLT - PLATELET COUNT 182 10^3/uL (130-450); RED BLOOD COUNT 5.15 10^6/uL (4.70-6.10); RED CELL DISTRIBUTION WIDTH 12.6 % (12.0-15.0)
[2023-08-19 12:05] LABS: ALBUMIN 4.5 g/dL (3.2-5.5); BILIRUBIN,TOTAL 1.2 mg/dL (0.2-1.0); CALCIUM 9.5 mg/dL (8.5-10.3); CREATININE 1.1 mg/dL (0.6-1.3); POTASSIUM 4.6 mmol/L (3.5-4.5); TOTAL PROTEIN 6.7 g/dL (6.4-8.9)
[2023-08-19 12:12] VITALS: BP 143/100; O2SAT 96
--- NOTE | 2023-08-19 12:26 | ED Physician Documentation ---
History of Present Illness - Stated complaint Stated Complaint: TROUBLE SWALLOWING - Chief complaint Chief Complaint: General - History obtained from History obtained from: Patient - Additonal information Additional information: Patient is a 78-year-old male with a history of Parkinson's a long history of dysphagia presenting for evaluation of difficulty with swallowing which has worsened over the past 2 days. Patient states on he ate a corn dog and then had several episodes of emesis. He states that since that time he has been vomiting all food including water and yogurt this morning. He states that even if he drinks too much fluids then he starts to vomit that up. However he has been able to tolerate his secretions and has been able to sleep without any difficulty. He follows with GI at [place] and has recently been at [facility] for an esophageal manometry which was not completed due to difficulties in placing the catheter. He has had multiple EGDs in the past with esophageal dilatations which he states have not helped. Review of Systems Constitutional: denies: Fever Cardiac: denies: Chest pain / pressure Respiratory: denies: Dyspnea GI: reports: Vomiting. denies: Abdominal Pain PD PAST MEDICAL HISTORY - Past Medical History Cardiovascular: Hypertension Respiratory: Pneumonia Neuro: Migraines, Parkinson's Endocrine/Autoimmune: Type 2 diabetes, HyPOthyroidism GI: Other : None HEENT: None Psych: None Musculoskeletal: Fibromyalgia - Past Surgical History Past Surgical History: Yes General: Cholecystectomy, Colonoscopy, EGD Derm: Skin grafts - Present Medications Home Medications: Ambulatory Orders Medication Instructions Recorded Confirmed Aspirin [Children's Aspirin] 81 mg PO DAILY 01/26/13 08/19/23 Hydroxychloroquine [Plaquenil] 200 mg PO BID 01/26/13 08/19/23 [place]-3 Fatty Acids/Fish Oil [Fish 1 tab PO DAILY 01/26/13 08/19/23 Oil 1,000 mg Capsule] Omeprazole 20 mg PO BID 01/26/13 08/19/23 Cholecalciferol (Vitamin D3) 1 tab PO DAILY 05/02/17 08/19/23 [Vitamin D3] Levothyroxine [Synthroid] 75 mcg PO DAILY 07/23/20 05/29/22 Docusate Sodium 100Mg Capsule 100 mg PO DAILY #20 cap 12/11/21 08/19/23 [Colace 100Mg Capsule] Carbidopa/Levodopa 1 each PO TID 08/19/23 08/19/23 [Carbidopa-Levodopa 25-100 Tab] Latanoprost 0.005% Ophth Drops 1 drops OPTH QPM 08/19/23 08/19/23 [Xalatan Ophth Drops] Metoprolol Succinate [Toprol Xl] 12.5 mg PO HS 08/19/23 08/19/23 Metoprolol Succinate [Toprol Xl] 25 mg PO DAILY 08/19/23 08/19/23 SITagliptin [Januvia] 100 mg ORAL DAILY 08/19/23 08/19/23 - Allergies Allergies/Adverse Reactions: Allergies Allergy/AdvReac Type Severity Reaction Status Date / Time lidocaine Allergy pass out Verified 08/19/23 09:52 - Social History Does the pt smoke?: No Smoking Status: Never smoker Does the pt drink ETOH?: No Does the pt have substance abuse?: No - Immunizations Immunizations are current?: Yes - POLST Patient has POLST: No POLST Status: Full Code PD ED PE NORMAL - General General: Alert and oriented X 3, No acute distress, Well developed/nourished - HEENT HEENT: Atraumatic, Moist mucous membranes, Pharynx benign - Neck Neck: Supple, no meningeal sign - Cardiac Cardiac: RRR, Strong equal pulses - Respiratory Respiratory: No respiratory distress, Clear bilaterally - Abdomen Abdomen: Soft, Non tender, Non distended - Derm Derm: Warm and dry - Neuro Neuro: Normal speech Results - Vitals Vitals: Vital Signs - 24 hr 08/19/23 08/19/23 08/19/23 09:52 10:10 12:00 Temperature 36 C L Heart Rate 64 61 66 Respiratory 18 18 16 Rate Blood Pressure 173/122 H 137/100 H 143/100 H O2 Saturation 99 98 96 Oxygen O2 Source Room air - Labs Labs: Laboratory Tests 08/19/23 08/19/23 10:33 10:33 WBC 7.0 RBC 5.15 Hgb 16.4 Hct 46.5 MCV 90.3 MCH 31.8 H MCHC 35.3 RDW 12.6 Plt Count 182 MPV 9.0 Neut # (Auto) 3.9 Lymph # (Auto) 2.0 Cache # (Auto) 0.7 Eos # (Auto) 0.3 Baso # (Auto) 0.1 Absolute Nucleated RBC 0.00 Nucleated RBC % 0.0 Sodium 137 Potassium 4.6 H Chloride 103 Carbon Dioxide 29 Anion Gap 5.0 L BUN 16 Creatinine 1.1 Estimated GFR (MDRD) 65 L Glucose 178 H Calcium 9.5 Total Bilirubin 1.2 H AST 25 ALT 7 L Alkaline Phosphatase 58 Total Protein 6.7 Albumin 4.5 Globulin 2.2 Albumin/Globulin Ratio 2.0 Lipase 19 PD Medical Decision Making - ED course Complexity details: reviewed results, re-evaluated patient, d/w patient, d/w family ED course: Patient is a 78-year-old male with a history of Parkinson's, long history of dysphagia presenting for evaluation with worsening of his swallowing since he ate a corn dog 2 days ago. He has had difficulty with all solids as well as also with liquids including yogurt and water today. He is tolerating his secretions and reports he has not had difficulty in sleeping at night. Therefore I do believe he is able to to pass Some things orally and clinically does not have symptoms to suggest a complete esophageal obstruction. His speech is normal. He does not have signs of airway compromise. He was given a dose of glucagon here and reports not feeling any different but then was given a glass of water and able to tolerate this without any vomiting and was monitored for quite a bit of time after drinking the water. I did discuss the case with our on-call general surgeon who recommended reaching out to his GI. I did speak to on-call GI at [place] who does not feel patient requires any immediate intervention and should have follow-up with a specialist and esophageal dysmotility like at the [facility] or [facility]. I recommend to the patient and his that he stick to a liquid diet until he is seen for follow-up and explained that the GI in [place] feels he needs a specialist that would only be available in [place].They indicate understanding and are advised on concerning symptoms to return for. 1120 - Discussed with Dr. Katz. Recommends speaking with patient's GI as we do not have capabilities to do more advanced procedures such as esophageal dilatations and patient has quite a complex history. 1245 - Discussed with GI at [place]. Dr. Roper - Does not feel patient needs any acute intervention today as he is able to tolerate liquids. She has reviewed his chart and states that he has a significant esophageal dysmotility disorder or achalasia and requires being seen at a more specialized facility. She recommends that he reach out to [facility] or the [facility] to be seen by GI there as she does not feel that she would have anything further to offer as a community porcelain finisher.. Departure - Departure Disposition: 01 Home, Self Care Clinical Impression: Dysphagia Condition: Stable Instructions: Dysphagia Diet Comments: You need referral to a porcelain finisher at a larger facility that deals with esophageal dysmotility or achalasia - This would likely be in [place] like at [facility] or the [facility]. This is the recommendation from the porcelain finisher in [place]. In the meanwhile would recommend sticking with a liquid diet. You can utilize protein shakes as well as pureing food into a smoothie consistency so that you are able to get in more nutrition. But you will likely need to continue with doing small amounts more frequently. I would recommend calling your primary care on Monday. Return to the emergency department with any worsening symptoms. Forms: PCP List Discharge Date/Time: 08/19/23 13:21
== END 2023-08-19 13:21 | disposition home or self-care (01) ==
LOC: ED 09:42
DX: R13.10 Dysphagia, unspecified (principal); E11.9 Type 2 diabetes mellitus without complications; Z79.85 Long-term (current) use of injectable non-insulin antidiabetic drugs; I10 Essential (primary) hypertension
CPT/HCPCS: 36415; 80053; 83690; 85025; 96374; 99283; 99284; J1610